=== PATIENT | male | born 1955 | race Caucasian/White ===

== ENCOUNTER → 2020-04-07 17:07 | Outpatient (CLI) | payer BC, SELFPAY ==
[2020-04-07 17:41] LABS: Add Manual Diff / Slide Review NO; Basophils Absolute Auto 100 /uL (0-100); Basophils Percent Auto 1.1 % (0-2); Eosinophils Absolute Auto 500 /uL (0-450); Eosinophils Percent Auto 4.7 % (2-4); Hematocrit 42.8 % (41-53); Hemoglobin 14.5 g/dL (13.5-17.5); Lymphocytes Absolute Auto 2400 /uL (1100-4500); Lymphocytes Percent Auto 23.7 % (25-40); Mean Corpuscular HGB Conc 33.9 % (30-36); Mean Corpuscular Hemoglobin 29.1 PG (26-34); Mean Corpuscular Volume 85.8 fL (80-100); Monocytes Absolute Auto 700 /uL (0-900); Monocytes Percent Auto 6.9 % (3-14); Neutrophils Absolute Auto 6500 /uL (1500-7000); Neutrophils Percent Auto 63.6 % (50-75); Platelet Count 262 X10^3/uL (150-400); Red Blood Cell Count 4.99 X10^6/uL (4.5-5.9); Red Cell Distribution Width 14.3 % (11.6-14.8); White Blood Cell Count 10.2 X10^3/uL (4.5-11.0)
[2020-04-07 18:01] LABS: BUN Creatinine Ratio 24.7 (6-22); Blood Urea Nitrogen 22 mg/dL (9-20); Calcium 9.8 mg/dL (8.4-10.2); Carbon Dioxide 27 mmol/L (22-32); Chloride 106 mmol/L (98-107); Estimated Glomerular Filt Rate > 60.0 mL/min (>60); Glucose 129 mg/dL (80-110); HEMOLYSIS < 15 (0-50); Potassium 4.1 mmol/L (3.4-5.1); Sodium 139 mmol/L (137-145)
== END ==
PROVIDERS: Referring Provider Orthopaedic Surgery; Visit Provider Orthopaedic Surgery
DX: Z01.818 Encounter for other preprocedural examination (principal); Z01.812 Encounter for preprocedural laboratory examination; M25.561 Pain in right knee
CPT/HCPCS: 36415; 80048; 85025; 93005

== ENCOUNTER → 2020-04-10 09:08 | Outpatient (CLI) | payer BC, SELFPAY ==
[2020-04-10 11:14] LABS: COVID19 -Nasal RAPID Negative (Negative)
== END ==
PROVIDERS: Visit Provider Nurse Practitioner
DX: Z20.822 Contact with and (suspected) exposure to COVID-19 (principal)
CPT/HCPCS: 87635

== ENCOUNTER 2020-04-12 10:47 | Day surgery (SDC) | payer BC, SELFPAY ==
[2020-04-12] VITALS (14 sets, daily range): BP systolic 115–158; BP diastolic 57–83; PULSE 78–89; RESP 11–17; TEMP 36.8–37.7; O2SAT 91–97; BMI 37.2
--- NOTE | 2020-04-12 06:00 | DI.RAD.S_ITS ---
PROCEDURE: XR KNEE RT 1TO2V INDICATIONS: post op films TECHNIQUE: 2 view(s) of the knee acquired. COMPARISON: [facility], , KNEE 1-2 VIEWS LEFT, 04/11/2016, 12:05. FINDINGS: Bones: Patient is status post knee joint arthroplasty. Hardware components are in expected positions. Visualized bony structures are intact. Soft tissues: Overlying postoperative changes are noted. IMPRESSION: Postop changes from right total knee arthroplasty with anatomic right knee alignment. Dictated by: Rios Gillespie M.D. on 04/12/2020 at 16:19 Approved by: Rios Gillespie M.D. on 04/12/2020 at 16:20
[2020-04-12] MEDS: MELOXICAM 7.5 MG TABLET 15 MG PO (11:26)
[2020-04-12] MEDS: PREGABALIN 75 MG CAPSULE PO (11:26)
[2020-04-12] MEDS: ACETAMINOPHEN 325 MG TABLET 975 MG PO (11:27)
[2020-04-12] MEDS: LACTATED RINGERS 1,000 ML 42 ML IV (11:28)
[2020-04-12] MEDS: CEFAZOLIN 2 GM/100 ML FROZ.PIGGY IV (13:53)
[2020-04-12] MEDS: TRANEXAMIC ACID 1,000 MG VIAL 1000 MG INJ ×2 (14:06→15:08)
[2020-04-12] MEDS: MORPHINE 4 MG/ML INJ INJ (14:18)
[2020-04-12] MEDS: BUPIVACAINE LIPOSOME 266 MG/20 ML VIAL INJ (14:18)
[2020-04-12] MEDS: BUPIVACAINE 0.5% W/ EPI (PF) 30 ML VIAL INJ (14:20)
--- NOTE | 2020-04-12 15:32 | SUR.OPER ---
Supine on padded OR bed. Pillow under head, arms secured on padded armboards <90 degree abduction. Safety belt across torso. Non-operative leg secured with tape over blanket over lower leg. Operative leg secured in DeMayo positioner and Operative leg in control of the surgeon.
--- NOTE | 2020-04-12 15:33 | PM.OP.1 ---
Operative Date/Time/Diagnoses Date of procedure: 04/12/20 Time of procedure: 15:34 Pre-op diagnosis: Right knee osteoarthritis Post-op diagnosis: same Procedure & Clinicians Procedure: Right total knee replacement Same procedure as scheduled: Yes Indications: The patient has had progressively worsening right knee pain with radiographic changes consistent with arthritis. Non-operative management has failed and the patient has requested total knee replacement. The risks, benefits and alternatives to surgery were discussed with the patient prior to proceeding. Risks discussed included, but were not limited to, failure to relieve pain, stiffness, infection, nerve damage, deep venous thrombosis, pulmonary embolism, stroke, coma, heart attack, permanent paralysis and , as well as the potential need for eventual revision of the prosthetic. Surgeon: Stephen Arvizu Program Services Assistant: Len Mercedes Click Yes if Unassisted: No Anesthesia Type: Spinal, Sedation and Local Operative Notes Findings: Severe patellofemoral and medial osteoarthritis with relative preservation of the lateral compartment. Closure Type: primary Specimen(s): none sent Prosthetic devices, grafts, tissues, transplants, or devices: Implants used in this procedure were manufactured by the [employer] and [employer] and included the BCS II Journey total knee replacement with a size 7 right Oxinium femur, size 6 right non porous tibial base plate, a 9 mm cross-linked polyethylene tibial insert and a 35 mm oval Sofia II patellar component. Applied: implant(s) Estimated Blood Loss (mL): 25 Blood products transfused: none Tourniquet time (min): 60 Procedure in detail: The patient was seen in the pre-operative area, where the patient identified the right knee as the operative site and this was marked with my initials. The patient received pre-operative antibiotics, and was taken to the operating room and placed on the operative table in the supine position. After satisfactory anesthesia, a radio time sales supervisor out was performed. The right leg was encircled with a tourniquet about the proximal thigh, and the leg was prepared from the toes to the tourniquet with ChloroPrep in the usual fashion and draped through sterile drapes. The leg was elevated and exsanguinated with Eschmark bandage and the tourniquet inflated to 250 mmHg pressure. The knee was approached through an approximately 18 cm incision centered over the patella and carried into the knee through a medial parapatellar arthrotomy. The anterior osteophytes and soft tissues were removed. The rotational landmarks of [place]Hyder's line and the transepicondylar axis were marked on the femur with electrocautery, and intramedullary guide holes for the femur and tibia were created. The distal femoral cut was made in 6 degrees of valgus using the intramedullary guide at the primary cut setting. The proximal tibial cut was then made using the intramedullary guide, taking 9 mm of bone off the less involved side. The extension gap was checked and the rotation of the femoral component confirmed with the gap balancing system. The anterior, posterior and chamfer cuts were then made. The posterior osteophytes and soft tissues were then removed. The posterior capsule was injected with part of a mixture of 60 ml 0.25% Marcaine mixed with 20 ml Exparel and 4 mg of morphine for post-operative pain control. The remainder of this mixture was injected into the capsule and subcutaneous tissues during cement curing. The tibia was prepared with the rotation set by an extra medullary guide. Trial tibial and femoral components were then placed and the intercondylar notch cut through the femoral trial. Range of motion was 0-135 degrees, with good stability throughout the range. The patella was then cut to accommodate the patellar prosthetic. There was no need for a lateral release. The trials were then removed, and the femoral hole plugged with a bone plug. The bone was prepared with pulsatile lavage, and dried with a sponge. Cement was applied and the final prosthetics placed. Excess cement was removed during and after cement curing. After confirming there was no extruded cement posteriorly, the final tibial insert was placed. The knee was copiously irrigated and the tourniquet deflated. Hemostasis was obtained. The capsule was closed with interrupted # 2 polyester suture. The subcutaneous layer was closed with 3-0 Vicryl, and the skin with a running 3-0 V-Lock suture and Dermabond. An Aquacel Ag dressing was applied and the patient was taken to recovery having tolerated the procedure well. Complications: none Post-operative Condition: stable Disposition: PACU Plan for aftercare: The patient will be maintained on a standard total knee replacement protocol with weight bearing as tolerated. The patient will receive aspirin and sequential compression devices for DVT prophylaxis. The patient will be discharged home when safe for the home environment.
[2020-04-12] MEDS: LACTATED RINGERS 1,000 ML 100 ML IV (17:36)
[2020-04-12] MEDS: OXYCODONE IR 5 MG TABLET PO (17:59)
[2020-04-12] MEDS: IBUPROFEN 400 MG TABLET PO (20:43)
[2020-04-12] MEDS: ASPIRIN EC 81 MG TABLET PO (20:43)
[2020-04-12] MEDS: DOCUSATE 100 MG CAPSULE PO (20:45)
[2020-04-12] MEDS: ACETAMINOPHEN 325 MG TABLET 650 MG PO (20:45)
--- NOTE | 2020-04-12 22:14 | PC.NURSE ---
Addendum entered by Catie Parada R.N. 04/12/20 23:13: Pt IV dislodged while trying to urinate. New site placed LFA Pt has not voided, bladder scan 472 I/O cath done by student & instructor for 500cc clear, yellow urine. Continue w/plan of care. Original Note: Pt satisfactory post op course. Med as per orders for discomfort w/good relief. Dsg to right surgical knee CDI. SCD on IVF infusing as per orders. Call light w/in reach, bed alarm on for pt safety. Continue w/plan of care.
[2020-04-13] MEDS: IBUPROFEN 400 MG TABLET PO ×4 (00:13→12:48)
[2020-04-13 00:34] VITALS: BP 119/69; PULSE 88; RESP 20; TEMP 37; O2SAT 95
[2020-04-13] MEDS: OXYCODONE IR 5 MG TABLET PO (04:35)
[2020-04-13 05:08] VITALS: BP 126/61; PULSE 76; RESP 20; TEMP 36.7; O2SAT 94
--- NOTE | 2020-04-13 07:32 | PM.DS.1 ---
History of Present Illness History of Present Illness Date Patient Seen: 04/13/20 Time Patient Seen: 07:32 Chief complaint: *OPB* Narrative: The history and physical are contained in the chart previously completed note. Please refer to that note for this information. Discharge Providers Provider Discharge Date: 04/13/20 Primary care physician: Doctor Candi MD Consults: 04/12/20 16:34 Consult to Discharge Planning Routine Comment: Consult to Physical Therapy Evaluate & Treat Comment: Physician Instructions: postop TKA protocol Discharge provider: Stephen Arvizu MD Summary Hospital Course Discharge Diagnosis: 1. Right knee osteoarthritis 2. Postoperative urinary retention Hospital Course: Patient was admitted to the hospital and taken directly to the operating room on April 12, 2020. He underwent a right total knee replacement with no complications. Postoperative day 1 he was comfortable and had been able to get up several times during the night. He did have urinary retention. At the time of this dictation he has been started on Flomax. The plan is for discharge after spontaneous voiding. Status at Discharge Functional status at discharge: uses cane/walker Overall status at discharge: patient is progressing back to baseline Time Spent with Patient Time spent: Less than 30 minutes Exam Vital Signs (past 8 hours): - 04/13/20 00:34 04/13/20 05:08 Temperature 98.6 F 98.0 F Pulse Rate 88 76 Respiratory Rate 20 20 Blood Pressure 119/69 126/61 Pulse Oximetry 95 94 Oxygen Delivery Method Room Air Oxygen Flow Rate 2 Narrative Exam Narrative: Right knee wound is dressed with no drainage on the bandage. Calf is soft. Light touch and motion are intact in the right lower extremity. [facility] Social History household members: none Smoking Status: Former smoker alcohol intake: current Discharge Assessment & Plan Assessment and Plan Assessment: Stable postoperative day 1 status post right total knee replacement with the exception of urinary retention. This is being addressed this morning. Plan of Treatment: He will be started on Flomax this morning and then discharged after he spontaneously voids. Follow-up will be in my office in 10-14 days. Discharge medications have been called in to [facility]. He will be on oxycodone for pain relief and low-dose aspirin for DVT prophylaxis. He will have outpatient physical therapy. Discharge Plan Discharge Plan Patient Disposition: Home Discharge orders & Medications Discharge Orders: Discharge (Order); Ordered 04/13/20 Ordered By: Stephen Arvizu Prescriptions: New acetaminophen 325 mg Tablet 650 mg PO TID 30 Days Qty: 180 RF: 0 aspirin 81 mg Tablet,Delayed Release (Dr/Ec) 81 mg PO BID 42 Days Qty: 84 RF: 0 tamsulosin [Flomax] 0.4 mg Capsule 0.4 mg PO DAILY Qty: 30 RF: 0 oxycodone 5 mg Tablet 5 mg PO Q4H PRN (Reason: Pain, Moderate (4-6)) Qty: 40 RF: 0 Continued rosuvastatin 10 MG tablet 5 mg PO QDAY Qty: 0 RF: 0 lisinopril-hydrochlorothiazide 20 MG/25 MG tablet 1 tab PO QDAY Qty: 0 RF: 0 diclofenac potassium RF: 0 trhmienmheqw-qmyndlsx-zmlwro Tablet 1 tab PO DAILY RF: 0 krill oil PO DAILY RF: 0 Follow up/Referrals: Doctor Christopher MD [Primary Care Provider] - Stephen Arvizu MD [Physician] - 2 Weeks Diet/Activity/Treatments Diet: Diet as Tolerated and Regular Activity: Bear weight as tolerated on your right knee. Cold/Heat Therapy: Apply ice to the right knee for 15 minutes every hour as needed for pain control. Skin/Wound/Dressing Care Report to your healthcare provider any signs of infection, such as:: chills, fever, night sweats, increased pain, unusual drainage and unusual redness Dressing: You may remove the Danis wrap in 3 days and shower normally with the deeper dressing in place. Leave the deeper dressing in place until follow-up. If the central strip of the deeper dressing becomes saturated with either water or blood, please call the office to have it changed. Visit Report/Discharge Packet Instructions: DI for Knee Replacement Stand Alone Forms: Surgery Discharge Discharge Data Primary Care Provider: Doctor Candi Attending Provider: Stephen Arvizu Quality VTE Deep Vein Thrombosis/Pulmonary Embolism Present on Admission: No
[2020-04-13 07:40] VITALS: BP 131/70; PULSE 77; RESP 18; TEMP 37.1; O2SAT 95
[2020-04-13] MEDS: hydroCHLOROthiazide 25 MG TABLET PO (08:17)
[2020-04-13] MEDS: OXYCODONE IR 10 MG TABLET PO ×2 (08:17→12:48)
[2020-04-13] MEDS: DOCUSATE 100 MG CAPSULE PO (08:17)
[2020-04-13] MEDS: ACETAMINOPHEN 325 MG TABLET 650 MG PO ×2 (08:17→12:47)
[2020-04-13] MEDS: ROSUVASTATIN 10 MG TABLET 5 MG PO (08:18)
[2020-04-13] MEDS: ASPIRIN EC 81 MG TABLET PO (08:18)
[2020-04-13] MEDS: TAMSULOSIN 0.4 MG CAPSULE PO (08:18)
[2020-04-13] MEDS: lisinopriL 20 MG TABLET PO (08:18)
[2020-04-13 08:41] LABS: Hematocrit 36.8 % (41-53); Hemoglobin 12.4 g/dL (13.5-17.5)
--- NOTE | 2020-04-13 10:12 | PT.IIE ---
Current Diagnoses Unilateral primary osteoarthritis, right knee (04/12/20) Surgery Performed Operation Date: 04/12/20 12:45 Actual Procedures p Total Knee Arthroplasty(Right) - Stephen Arvizu MD Physical Therapy Inpatient Evaluation/Re-Eval M1 PT/OT-IP Prior Functional Status Start: 04/13/20 08:39 Freq: NEEDED Status: Active Protocol: Document 04/13/20 10:11 AW (Rec: 04/13/20 11:27 AW [id number]) Medical Review Prior Functional Status Medical History Reviewed Yes Communication WNL Mobility and Gait Pt is active and independent. 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 Activities of Daily Living and IADL's Independent Social History Household Members none Living Arrangements House Number of Floors (Floors) One Floor Number of Stairs To Enter/Railing? Home details refer to daughter 's house where pt will be staying 6 weeks after surgery. 3 RACHEL with left rail ascending. Home Environment Standard Height Toilet,Walk in Shower Home Equipment Front Wheel Walker,Straight Cane,Raised Toilet Seat w/ Armrests,Shower Seat without Backrest,Hand Held Shower,Grab Bars In Shower Additional Social History Comment Pt lives alone in [place]. He is staying locally with his daughter, Sandhya, and her family. He will have assist at nearly all times. M2 PT-IP Current Condition Start: 04/13/20 08:39 Freq: NEEDED Status: Active Protocol: Document 04/13/20 10:11 AW (Rec: 04/13/20 11:27 AW [id number]) Physical Therapy Current Condition Current Condition Evaluation Date 04/13/20 Treatment Diagnosis s/p R TKA; difficulty in walking Onset Date 04/12/20 Weight Bearing Status Weight Bearing Status Weight Bear as Tolerated M3 PT-IP Subjective Start: 04/13/20 08:39 Freq: NEEDED Status: Active Protocol: Document 04/13/20 10:11 AW (Rec: 04/13/20 11:27 AW [id number]) Subjective Physical Therapy Visit Type Type Initial Evaluation Visit Start Time 09:39 Visit Stop Time 10:11 Total Visit Minutes 32 Notes Pt's daughter was present throughout. Number of CLUB ROOM ATTENDANT Visits 0 Physical Therapy Visit Comments Patient Comments Pt is willing to participate with PT Patient Goals Pt plans to discharge to his daughter's house for six weeks Therapy Pain Assessment Pain When Pain Assessed At Rest Pain Present Pain Present Pain Reported Location right knee Intensity 4 Scale Used increases with mobility Pain Management Techniques Apply Cold,Timing of Activity with Medications M4 PT-IP Mobility and Gait Start: 04/13/20 08:39 Freq: NEEDED Status: Active Protocol: Document 04/13/20 10:11 AW (Rec: 04/13/20 11:27 AW [id number]) PT-Bed Mobility Assessment Supine to Sit Supine to Sit Contact Guard Assistance, Minimal Assistance Sit to Supine Sit to Supine Contact Guard Assistance, Bedrails Scooting Scooting to Edge of Bed Contact Guard Assistance PT-Transfer Assessment Sit to and From Stand Sit to and from Stand Minimal Assistance,1 Person Assistance,Use of Upper Extremities Equipment Transfer Assistive Device Gait Belt,Front Wheeled Walker Orthotic/Prosthetic Devices or Brace: No Transfers Transfer Destination Chair Transfer Technique Stand Step Pivot Transfer Ability Level of Assist Minimal Assistance,1 Person Assistance,Use of Upper Extremities Comments Mobility Comments Pt was reclined in bed as PT arrived. He demonstrated supine to sit attempting to use momentum to lift his right leg to left side of the bed and ultimately required min assist. PT demonstrated use of a strap to mobilize the operative leg and pt was able to return to supine CGA to guide the leg. He then repeated supine to sit using the strap and required only CGA. Sitting EOB, pt was able to support himself. He then stood min A x 1 and used the FWW to shift weight side to side. With FWW and CGA, pt ambulated 15 feet in the room and then transferred to the bedside chair min A x 1 with cues for sequencing. Pt was positioned on the chair with ice packs applied to right knee, call light and all needs in reach. Pt's daughter remained in the room. Gait Assessment Gait Gait Assistance Required: Contact Guard Assist Distance (Feet) 15 Able to Maintain Weight Bearing Status Yes During Gait Assistive Devices Assistive Device Gait Belt,Front Wheeled Walker Orthotic/Prosthetic Devices or Brace: No Gait Deviations General Gait Pattern Antalgic,Decreased Stride Length,Decreased Feet Clearance,Flexed Trunk,Step-to Gait Factors Limiting Gait Function Factors Limiting Gait Function Decreased Activity Tolerance, Decreased Strength,Limited Range of Motion,Pain,Poor Balance,Poor Safety Awareness Comments Gait Comments Steps were quite short with feet not passing one another in gait. Pt relied heavily on FWW for weightbearing UE. Stair Climbing Assessment Comments Stair Climbing Comments Not assessed. Pt agrees to train stairs at PM session. PT-Balance Assessment Sitting Balance and Reactions Static Sitting Balance Ability Good Dynamic Sitting Balance Ability Good Standing Balance and Reactions Static Standing Balance Ability Good Dynamic Standing Balance Ability Fair Device Used FWW M5 PT-IP Objective Assessments Start: 04/13/20 08:39 Freq: NEEDED Status: Active Protocol: Document 04/13/20 10:11 AW (Rec: 04/13/20 11:27 AW [id number]) Orientation Orientation/Cognition Level of Alertness Alert Orientation Name,Day of Week,Place, Situation Language Function Ability No Deficits Noted Safety Awareness Understands Safety Issues Memory Description No Deficits Noted Gross Range of Motion Lower Extremity ROM Assessment Right Impaired Impairments Pt able to perform seated knee flex/ext slides with ~85 degrees flexion Strength Lower Extremity Strength Assessment Right Impaired Comments Strength Comments L hip 4/5; L knee 4+/5 Sensation Assessment Sensation Gross Sensation WNL Muscle Tone Muscle Tone WNL Yes M6 PT-IP Treatment Start: 04/13/20 08:39 Freq: NEEDED Status: Active Protocol: Document 04/13/20 10:11 AW (Rec: 04/13/20 11:27 AW [id number]) Physical Therapy Treatment Exercises Exercises Ankle Pumps,Quad Sets,Heel Slides,Passive Knee Extension Hang,Seated Knee Flexion/ Extension Education Education Provided Precautions,Weight Bearing Status,Post-Op Packet,Safety Other Treatments Other Treatment Performed Educated pt and his daughter on role of PT, plan of care, WB status, safe use of FWW. M7 PT-IP Assessment and Plan Start: 04/13/20 08:39 Freq: NEEDED Status: Active Protocol: Document 04/13/20 10:11 AW (Rec: 04/13/20 11:27 AW [id number]) PT Summary Assessment and Plan Potential Rehabilitation Potential Good Status of Condition at Evaluation Evolving Summary Impairments Pain,ROM,Strength,Balance,Bed Mobility,Transfers,Gait, Activity Tolerance Assessment Summary Garrett is a 64 yo man seen for PT evaluation on POD1 following R TKA. He is independent and active on the job at baseline. On evaluation , pt required CGA to min assist for all mobility and was limited by poor activity tolerance. PT anticipates he will be safe to discharge to his daughter's home with assist and outpatient PT once medically stable. He plans to stay with his daughter locally for six weeks to recover and already has outpatient PT scheduled. Pt and daughter agree to participate in caregiver/stairs training at PM session around 1400 today. Will assess for discharge preparedness at that time. Goals Bed Mobility Goal Independent Transfer Goal Standby Assistance,Front Wheeled Walker Gait Goal Standby Assistance,Front Wheel Walker Gait Distance 150 Other Goals - up/down 3 steps with left rail ascending CGA Days to Meet Goals 2 Frequency of Treatment Frequency Of Treatment Twice a Day Treatment Plan Physical Therapy Treatment Plan Bed Mobility Training,Transfer Training,Gait Training, Therapeutic Exercise,Balance Retraining,Post Op Education, Discharge Planning,Hot or Cold Pack Other Recommendations and Next Treatment gait train with FWW; stairs Focus with daughter to assist Recommendations To Nursing Amount of Assist Needed 1 Person Assist Discharge Recommendations PT Discharge Recommendations Home with Assistance, Outpatient PT Transportation Needs at Discharge Private Vehicle
[2020-04-13 10:57] VITALS: BP 131/66; PULSE 76; RESP 16; TEMP 37.7; O2SAT 94
--- NOTE | 2020-04-13 14:50 | PT.IPTN ---
Current Diagnoses Unilateral primary osteoarthritis, right knee (04/12/20) Surgery Performed Operation Date: 04/12/20 12:45 Actual Procedures p Total Knee Arthroplasty(Right) - Stephen Arvizu MD Physical Therapy Treatment Note M2 PT-IP Current Condition Start: 04/13/20 08:39 Freq: NEEDED Status: Active Protocol: Document 04/13/20 10:11 AW (Rec: 04/13/20 11:27 AW [id number]) Physical Therapy Current Condition Current Condition Evaluation Date 04/13/20 Treatment Diagnosis s/p R TKA; difficulty in walking Onset Date 04/12/20 Weight Bearing Status Weight Bearing Status Weight Bear as Tolerated M3 PT-IP Subjective Start: 04/13/20 08:39 Freq: NEEDED Status: Active Protocol: Document 04/13/20 14:24 SP (Rec: 04/13/20 17:06 SP [id number]) Subjective Physical Therapy Visit Type Type Treatment Note Visit Start Time 14:24 Visit Stop Time 14:50 Total Visit Minutes 26 Notes Daughter present and provide all physical assist needed during mobilitiy. Number of AUTOMATIC PATTERN EDGER Visits 1 Physical Therapy Visit Comments Patient Comments PT willing to work with therapy. Patient Goals Pt plans to discharge to his daughter's house for six weeks Therapy Pain Assessment Pain When Pain Assessed At Rest Pain Present Pain Present Pain Reported Location right knee Intensity 6 Scale Used deccreases with mobility Pain Management Techniques Apply Cold,Re-positioning, Timing of Activity with Medications M4 PT-IP Mobility and Gait Start: 04/13/20 08:39 Freq: NEEDED Status: Active Protocol: Document 04/13/20 14:24 SP (Rec: 04/13/20 17:06 SP [id number]) PT-Bed Mobility Assessment Supine to Sit Supine to Sit Standby Assistance,1 Person Assistance,Head of Bed Elevated Scooting Scooting to Edge of Bed Standby Assistance PT-Transfer Assessment Sit to and From Stand Sit to and from Stand Contact Guard Assistance,1 Person Assistance,Use of Upper Extremities Equipment Transfer Assistive Device Gait Belt,Front Wheeled Walker Orthotic/Prosthetic Devices or Brace: No Transfers Transfer Destination Chair Transfer Technique Pt ambulated using fWW Transfer Ability Level of Assist Contact Guard Assistance,Use of Upper Extremities Comments Mobility Comments Pt was performing heel slides when arrived stating, the top of knee is so stiff and not able to bend as much as like, approx 70 deg demonstrated. AUTOMATIC PATTERN EDGER educated not wanting to progress >90 deg right now due to safety stitches, mobility good for circulation as well but not over do it and cause knee to swell. Elevated supine >sit and scoot to EOB using gait belt on RLE, SBA. Sit> stand CGA by daughter after donned gait belt. Pt ambulated further distance into hallway , cued for safety pivot with small step using FWW and not lift turn to allow proper knee alignment with improved demonstration. Ambulated to stairs and back no stop rests needed using FWW CGA. Pt returned to chair with good slow descent CGA. Reviewed seated post op ex: heel slides , LAQ if tolerated and walking at home every hour for circulation, strength and decreased risk for DVT, verbalized understanding. Gait Assessment Gait Gait Assistance Required: Contact Guard Assist Distance (Feet) 180 Able to Maintain Weight Bearing Status Yes During Gait Assistive Devices Assistive Device Gait Belt,Front Wheeled Walker Orthotic/Prosthetic Devices or Brace: No Gait Deviations General Gait Pattern Antalgic,Decreased Stride Length,Decreased Feet Clearance,Flexed Trunk,Step-to Gait Factors Limiting Gait Function Factors Limiting Gait Function Decreased Activity Tolerance, Decreased Strength,Limited Range of Motion,Pain,Poor Balance,Poor Safety Awareness Comments Gait Comments cued slow pivot turning, and proper gait phases, R knee flexion into extension foot clearance into extension heel toe. Stair Climbing Assessment Evaluation Level of Assist On Stairs Contact Guard Assistance,1 Person Assistance Devices Stair Climbing Assistive Devices Straight Cane,Left Railing Technique/Endurance Stair Climbing Direction Ascend and Descend Stair Climbing Technique Step to Step Number of Steps Climbed 3 Stair Climbing Set # Repetitions (reps) 1 Comments Stair Climbing Comments Step to patterning, occasional cuing for proper sequencing. PT-Balance Assessment Sitting Balance and Reactions Static Sitting Balance Ability Good Dynamic Sitting Balance Ability Good Standing Balance and Reactions Static Standing Balance Ability Good Dynamic Standing Balance Ability Fair Device Used FWW M5 PT-IP Objective Assessments Start: 04/13/20 08:39 Freq: NEEDED Status: Active Protocol: Document 04/13/20 10:11 AW (Rec: 04/13/20 11:27 AW [id number]) Orientation Orientation/Cognition Level of Alertness Alert Orientation Name,Day of Week,Place, Situation Language Function Ability No Deficits Noted Safety Awareness Understands Safety Issues Memory Description No Deficits Noted Gross Range of Motion Lower Extremity ROM Assessment Right Impaired Impairments Pt able to perform seated knee flex/ext slides with ~85 degrees flexion Strength Lower Extremity Strength Assessment Right Impaired Comments Strength Comments L hip 4/5; L knee 4+/5 Sensation Assessment Sensation Gross Sensation WNL Muscle Tone Muscle Tone WNL Yes M6 PT-IP Treatment Start: 04/13/20 08:39 Freq: NEEDED Status: Active Protocol: Document 04/13/20 14:24 SP (Rec: 04/13/20 17:06 SP [id number]) Physical Therapy Treatment Exercises Exercises Ankle Pumps,Heel Slides,Seated Knee Flexion/Extension Knee ROM Measurement 70 deg w/ strap assist self performance Education Education Provided Precautions,Weight Bearing Status,Post-Op Packet,Safety Other Treatments Other Treatment Performed safe use of FWW M7 PT-IP Assessment and Plan Start: 04/13/20 08:39 Freq: NEEDED Status: Active Protocol: Document 04/13/20 14:24 SP (Rec: 04/13/20 17:06 SP [id number]) PT Summary Assessment and Plan Potential Rehabilitation Potential Good Status of Condition at Evaluation Evolving Summary Impairments Pain,ROM,Strength,Balance,Bed Mobility,Transfers,Gait, Activity Tolerance Assessment Summary Pt required sBA during bed mobililty using gait belt RLE, CGAfor all standing mobility using FWW. Pt completed 180 ft using FWW, ascend/descend 3 stairs using L HR and R SPC to enter daughter's home. Pt is ok to return home with family to assist when medically cleared. He is set up for outpatient PT. Goals Bed Mobility Goal Independent Transfer Goal Standby Assistance,Front Wheeled Walker Gait Goal Standby Assistance,Front Wheel Walker Gait Distance 150 Other Goals - up/down 3 steps with left rail ascending CGA Days to Meet Goals 2 Frequency of Treatment Frequency Of Treatment Twice a Day Treatment Plan Physical Therapy Treatment Plan Bed Mobility Training,Transfer Training,Gait Training, Therapeutic Exercise,Balance Retraining,Post Op Education, Discharge Planning,Hot or Cold Pack Other Recommendations and Next Treatment distance gait, LE ex, stand Focus balance activities, ROM Recommendations To Nursing Amount of Assist Needed 1 Person Assist Discharge Recommendations PT Discharge Recommendations Home with Assistance, Outpatient PT Transportation Needs at Discharge Private Vehicle
[2020-04-13 15:30] VITALS: BP 125/59; PULSE 71; RESP 17; TEMP 36.7; O2SAT 93
--- NOTE | 2020-04-13 16:33 | CM.DANOTE ---
DCP ASSESSMENT: Patient is 64 year-old male who was admitted post-surgical intervention for a right knee total knee replacement. PCP is a group of providers in [place] at [facility]. Primary payer is [facility] out of [facility]. DIABETES MANAGER Student met with patient sitting in chair in his room, patient was alert and oriented. He reported he is independent at base-line: working and driving. Per patient he pre-planned to have knee surgery here in [place] with Dr. Arvizu. Patient reported he is prepared at home he has mobility devices FWW/Cane and AE/DME for bathroom. Patient plans on remaining in area with his daughter Lucia Benitez for the next 6-weeks during recovery she can provide assistance at home and transportation upon D/C. Per patient has an out-patient PT appointment scheduled on 04/19/20. PLAN: Anticipate D/C home. CM Team to follow. MICHELLE Morales MSW Student Discharge Planning/Care Management CM Discharge Assessment Start: 04/13/20 11:53 Freq: Status: Active Protocol: Document 04/13/20 11:53 AL (Rec: 04/13/20 12:12 AL [id number]) Discharge Planning Assessment Assigned Application Development Team Lead MICHELLE Trujillo Student Contact Information Lucia Benitez, Daughter # Advance Directives? No History Provided By Patient,Medical Record Has Patient been admitted in last 30 No days? Prior Living Arrangements House Household Members children,none Comment Patient lives in [place] independently however, he is in [place] for pre-planned surgical intervention and will be staying with his daughter for the entire recovery period . Type of transporation used prior to Drives own vehicle admit Independent with ADL's Yes Is patient alert and oriented? Yes Caregiver for Another No DME Already Rented / Owned Bath Bench,Elevated Toilet Seat,FWW / Walker,Cane Discharge Plan Home Transportation Arrangement Patients daughter Lucia Benitez Referrals Initiated None needed Whiteboard Updated in Patient Room with Yes name and ext. # of Application Development Team Lead Review Status In Process Pre-Anesthesia Assessment Start: 03/30/20 15:52 Freq: Status: Active Protocol: Document 03/30/20 15:52 VLJ (Rec: 03/30/20 17:09 [facility] [id number]) Pre-Anesthesia Assessment Preferred Name Rolando (or Garrett) Patient Information Reviewed Via Phone Assessment Assessment Completed With Patient Primary Care Provider Thanh Seen Specialist in Last 12 Months Yes Specialist Seen Orthopedist Primary Language Tongan Preferred Language Tongan Chute Tapper Required Yes Height 172.72 cm Hearing Ability Normal Visual Impairment Partially Limited Visual Assist Glasses Dentition Type Teeth, Natural Present Barriers to Learning Visual Other Aids No Comment reading glasses Hx Anesthesia Reactions No Hx Family Anesthesia Reaction No Hx Malignant Hyperthermia No Hx Blood Transfusions No Hx Blood Transfusion Reaction No Anesthesia Review Requested No Salesperson Women'S Hats No alcohol intake current alcohol intake frequency a few times a month Smoking Status Former smoker how long ago did patient quit smoking 1986 Substance Use Type does not use Pain Present Denied Pain Musculoskeletal Symptoms Joint Pain History of Falling (Recent or History of No ) Patient is completely paralyzed or No completely immobile Ambulatory Aid None/bed rest/nurse assist Gait/Transferring Normal/bedrest/immobile Mental Status Oriented to own ability Is patient on oxygen? No Does patient have MAY/SOB No Hx Sleep Apnea Yes CPAP/BIPAP use prescribed and used routinely Will Bring CPAP/BIPAP DOS Yes Currently Taking a Beta David No Can You Climb a Flight of Stairs Without Yes SOB Hx Chest Pain No Hx SOB No Hx Syncope or Dizziness No Anti-Coagulant Therapy No Has a Library Services Dean No Cardiac Testing No Hx Pacemaker/ICD No Pacemaker Rep Required? No Cardiac Clearance Received Not Applicable Diet Type At Home Regular dysphagia No Bladder Pattern Frequency,Urgency Urinary Catheter Present No Hx Urinary Self Catheterization No Diabetes No HgbA1C 6.3 Comment per patient Hx Drug Resistant Organism No Presence of External or Internal Medical No Devices Have you had any close contact with No: (had covid in September) someone diagnosed with COVID-19? Are you experiencing any of these No symptoms symptoms? Evaluation/Screening for possible COVID- Yes 19 infection completed? Marital Status Lives With none Prior Living Arrangements House Number of Floors (Floors) Two Floors Number of Stairs To Enter/Railing? Pt is staying on the main floor at his daughter's house. Support System Family Does the Patient Have Assistance After Yes Surgery Patient Discharge Plan Description Home Health Comment Plans to stay here 7 weeks or until ready to return to work Additional comment Live in [place] Feels Safe in Current Environment Yes Been Physically Hurt or Threatened By a No Person in Current Environment Do you have thoughts of harming yourself None or others? Are you currently considering suicide? No Do you have a plan to hurt yourself or No Plan others? Do You Have Any Spiritual Beliefs That No May Affect Your HC Choices? Do You Have Any Cultural Practices That No May Affect Your HC Choices? Who Can We Speak to About Patient's Care Family & Friends Identifying Code for Release of Patient Declined Information Health Care Proxy/Next of Kin Daughter - Sandhya Benitez Health Care Proxy Emergency Contact Name Daughter - Sandhya Benitez Emergency Contact Comment She works at [employer] Directives? No Power of Bit Grinder No PAC Instructions Assistance for 24 hours post- op,Do not shave/clip surgical site,Durable medical equipment ,Medications to take/avoid, Nasal antibiotic,No ETOH/ petroleum product on skin DOS, NPO,Post-op transportation,Pre -op antibiotic,Pre-surgical wash,Sensory aids,Sturdy shoes /comfortable clothes,Do not bring valuables and remove jewelry
--- NOTE | 2020-04-13 17:18 | PC.NURSE ---
VSS. Discharge packet reviewed with patient. Questions answered. Escorted off of unit via wheelchair to personal vehicle. Off of unit 4:45.
== END 2020-04-13 16:50 | disposition home or self-care (01) ==
LOC: OR 11:48 → AC 13:44
PROVIDERS: Referring Provider Orthopaedic Surgery; Visit Provider Orthopaedic Surgery
PROC: 0SRC0JZ Replacement of Right Knee Joint with Synthetic Substitute, Open Approach (ICD-10-PCS; CPT 27447; principal; 2020-04-12 12:45)
DX: M17.11 Unilateral primary osteoarthritis, right knee (principal); I10 Essential (primary) hypertension; G47.33 Obstructive sleep apnea (adult) (pediatric); E66.9 Obesity, unspecified; Z68.37 Body mass index [BMI] 37.0-37.9, adult; R33.8 Other retention of urine
CPT/HCPCS: 27447; 36415; 73560; 82962; 85014; 85018; 94760; 97110; 97116; 97161; 97530; C1776; C9290; J0690; J1100; J2270; J2274; J2405; J2704

== ENCOUNTER 2020-05-19 10:30 | Outpatient (RCR) | payer BC, SELFPAY ==
--- NOTE | 2020-04-12 12:57 | PM.PREOP ---
Pre-operative Note COVID-19 COVID-19 status: Negative Result date/Date tested (Pos, Neg/Pending): 04/10/20 Interval Note History & Physical reviewed/Exam performed by Physician: Yes Changes to H&P: No
[2020-04-12 17:04] VITALS: BMI 37.2
--- NOTE | 2020-04-19 10:12 | PT.OIE ---
Current Diagnoses Bilateral primary osteoarthritis of knee (04/19/20) Difficulty in walking, not elsewhere classified (04/19/20) Weakness (04/19/20) Presence of left artificial knee joint (04/19/20) Visit Care Team Role Provider Type Doctor MD Candi Primary Care Provider Non-Staff Specialty: Medical Address: Phone: Fax: Email: Stephen Arvizu MD Attending Provider Physician Referring Provider Specialty: Orthopedic Surgery Address: [address] [place] [address], [place], [address] Email: [email or web address] Physical Therapy Initial Evaluation PT-OP-A Visit Information Start: 04/19/20 08:13 Freq: Status: Active Protocol: Document 04/19/20 08:14 SAK (Rec: 04/19/20 09:01 SAK [id number]) Out-Patient Physical Therapy Visit Information Visit Information Visit Type Initial Evaluation Visit Note Patient 5 min late Visit Start Time 08:20 Visit Number 1 Number of AUTOMOTIVE PARTS MANAGER Visits 0 Evaluation Information Evaluation Date 04/19/20 PT-OP-B Current Condition Start: 04/19/20 08:13 Freq: Status: Active Protocol: Document 04/19/20 08:14 SAK (Rec: 04/19/20 09:01 SAK [id number]) Current Condition History of Current Condition Onset Date 09/12/20 Current Complaints right knee pain History of Current Condition s/p right TKA, has been, doing HEP, has ice massage, has not been elevating. Reports minimal pain with this TKA as compared to high pain levels after last TKA. Has recovered well from left TKA. Future Testing and Treatments Planned Sees Dr. Arvizu 04/23/20 Treatment Goals Patient/Caregiver Goals Normal range of motion, strength, and walking with right LE, no assistive. Prior Functional Status Baseline Function- ADL's Independent Baseline Function- Mobility Independent Baseline Function- Gait antalgic due to pain Current Functional Impairments (Reported) Functional Limitations- ADL's painful Functional Limitations- Mobility/Gait painful, uses FWW Functional Limitations- Work/School painful Functional Limitations- Recreation/ painful Hobbies PT-OP-C Subjective Start: 04/19/20 08:13 Freq: Status: Active Protocol: Document 04/20/20 10:06 SAK (Rec: 04/20/20 10:11 [facility] [id number]) Patient Questionnaires Lower Extremity Functional Scale LEFS Score 39 OP-PT Pain Assessment Pain Assessment Grid Paper Pain Assessment Grid Completed Yes Location right knee Intensity 8 Scale Used Numeric (0 - 10) Description Aching,Burning,Pressure,Spasm, Tender,Tightness Frequency Frequent Pain Aggravating Factors Activity Pain Alleviating Factors Cold,Medication PT-OP-G Mobility & Gait Start: 04/19/20 08:13 Freq: Status: Active Protocol: Document 04/20/20 10:06 HALIMA (Rec: 04/20/20 10:11 [facility] [id number]) OP Gait Assessment Gait Gait Assistance Required: Standby Assistance Distance (Feet) 50 Able to Maintain Weight Bearing Status Yes During Gait Assistive Devices Assistive Device Front Wheeled Walker Orthotic/Prosthetic Devices or Brace: No Gait Deviations General Gait Pattern Antalgic,Flexed Trunk Factors Limiting Gait Function Factors Limiting Gait Function Decreased Strength,Pain Stair Climbing Evaluation Evaluation Level of Assist On Stairs Standby Assistance Technique/Endurance Stair Climbing Technique Step to Step PT-OP-H Neuro Start: 04/19/20 08:13 Freq: Status: Active Protocol: Document 04/20/20 10:06 HALIMA (Rec: 04/20/20 10:11 [facility] [id number]) Sensation Evaluation Gross Sensation Gross Sensation Right LE Impaired Sensation Description Paresthesia Comments Summary Comments right knee PT-OP-J Posture/Palpation/Skin Start: 04/19/20 08:13 Freq: Status: Active Protocol: Document 04/20/20 10:06 HALIMA (Rec: 04/20/20 10:11 [facility] [id number]) Palpation Assessment Location One Palpation Location right knee Palpation Findings Edema,Soft Tissue Tightness, Muscle Guarding,Tenderness Skin Assessment Incisional Assessment Incision Appearance/Comments Incision covered by post-op dressing. No signs or symptoms of infection PT-OP-K Range of Motion Start: 04/19/20 08:13 Freq: Status: Active Protocol: Document 04/20/20 10:06 HALIMA (Rec: 04/20/20 10:11 [facility] [id number]) Knee Goniometric Range of Motion Knee Right Knee ROM WFL No Patient Position Sitting Flexion Active (degrees) 88 Extension Active (degrees) 24 Left Knee ROM WFL Yes Patient Position Sitting Flexion Active (degrees) 124 Extension Active (degrees) 0 Knee ROM Limitations Knee ROM Limitations Soft Tissue Tightness,Muscle Weakness,Pain,Swelling Comments poor quad activation PT-OP-M Strength Start: 04/19/20 08:13 Freq: Status: Active Protocol: Document 04/20/20 10:06 SAK (Rec: 04/20/20 10:11 SAK [id number]) Knee Strength Knee Manual Muscle Testing Right Flexion (S2) 3- Fair- Extension (L3) 3- Fair- Left Flexion (S2) 5 Normal Extension (L3) 5 Normal PT-OP-Q Treatments Start: 04/19/20 08:13 Freq: Status: Active Protocol: Document 04/19/20 08:14 SAK (Rec: 04/19/20 09:01 SAK [id number]) Self-Care/Home Management Treatment Education Patient Education Fall Risk,Home Exercise Program,Pain Management,Safety PT-OP-R Modalities Start: 04/19/20 08:13 Freq: Status: Active Protocol: Document 04/19/20 08:14 SAK (Rec: 04/19/20 09:01 SAK [id number]) Hot Pack/Cold Pack Treatment Cold Pack Location knee Patient Position Hooklying Treatment Duration (minutes) 10 PT-OP-T Assessment and Plan Start: 04/19/20 08:13 Freq: Status: Active Protocol: Document 04/19/20 08:14 SAK (Rec: 04/19/20 09:01 SAK [id number]) Physical Therapy Assessment Goals Four Impairment lower extremity functional scale 39% Halfway Goal (LTG) Decrease LEFS score to no greater than 15% LTG Duration 07/19/20 Three Impairment right knee strength 3-/5 Short Term Goal (STG) Patient to be instructed in HEP for right knee strengthening and be independent and compliant STG Duration 05/26/20 Halfway Goal (LTG) Patient right knee strength to improve to at least 4+/5 LTG Duration 07/19/20 Two Impairment antalgic gait requiring FWW Short Term Goal (STG) Patient able to ambulate 200' with least restrictive device without limp STG Duration 05/26/20 Ledge Man Goal (LTG) Patient able to ambulate on level surfaces and stairs with no assistive device without limp and with alternating pattern on stairs. LTG Duration 07/19/20 One Impairment right knee AROM 24-88 Short Term Goal (STG) Improve AROM right knee to 10- 110 STG Duration 05/26/20 Halfway Goal (LTG) Improve knee AROM to 0-120 actively LTG Duration 07/19/20 Assessment Summary Assessment Patient presents for PT s/p right TKA 04/12/20 with ROM right knee 45-78 degrees AROM, 24-88 PROM. He has difficulty activating his quadriceps at this time. He is ambulating with a FWW with limited knee flexion and antalgic gait which improved some with instruction. He will benefit from physical therapy to address the above goals and help him return to previously active lifestyle. Physical Therapy Plan Frequency and Duration Frequency of Treatment 2x/Week Duration of Treatment 12 weeks Plan of Care Start Date 04/19/20 Plan of Care End Date 07/19/20 Therapeutic Interventions Therapeutic Interventions Balance Training,Gait Training ,Home Exercise Program,Joint Mobilizations,Manual Therapy, Neuromuscular Re-education, Patient/Caregiver Education, Self-Care/Home Management,Soft Tissue Mobilization,Taping, Therapeutic Activities, Therapeutic Exercises Modalities Cold Pack/Ice Massage,Electric Stimulation,Hot Packs Next Visit Focus/Plan Next Note Type Treatment Note Next Visit Plan Start with recumbant elliptical for ROM, review HEP , progress ther ex as tolerated, further gait training.
--- NOTE | 2020-04-19 10:14 | PT.OPPOC ---
Physical, Occupational & Speech Therapy At [facility] Current Diagnoses Bilateral primary osteoarthritis of knee (04/19/20) Difficulty in walking, not elsewhere classified (04/19/20) Weakness (04/19/20) Presence of left artificial knee joint (04/19/20) Visit Care Team Role Provider Type Doctor MD Candi Primary Care Provider Non-Staff Specialty: Medical Address: Phone: Fax: Email: Stephen Arvizu MD Attending Provider Physician Referring Provider Specialty: Orthopedic Surgery Address: [address] [place] [address], [id number] Email: [email or web address] Plan Of Care PT-OP-T Assessment and Plan Start: 04/19/20 08:13 Freq: Status: Active Protocol: Document 04/19/20 08:14 SAK (Rec: 04/19/20 09:01 SAK [id number]) Physical Therapy Assessment Goals Four Impairment lower extremity functional scale 39% Mcfp Goal (LTG) Decrease LEFS score to no greater than 15% LTG Duration 07/19/20 Three Impairment right knee strength 3-/5 Short Term Goal (STG) Patient to be instructed in HEP for right knee strengthening and be independent and compliant STG Duration 05/26/20 Java Jsf Developer Goal (LTG) Patient right knee strength to improve to at least 4+/5 LTG Duration 07/19/20 Two Impairment antalgic gait requiring FWW Short Term Goal (STG) Patient able to ambulate 200' with least restrictive device without limp STG Duration 05/26/20 Java Jsf Developer Goal (LTG) Patient able to ambulate on level surfaces and stairs with no assistive device without limp and with alternating pattern on stairs. LTG Duration 07/19/20 One Impairment right knee AROM 24-88 Short Term Goal (STG) Improve AROM right knee to 10- 110 STG Duration 05/26/20 Mcfp Goal (LTG) Improve knee AROM to 0-120 actively LTG Duration 07/19/20 Assessment Summary Assessment Patient presents for PT s/p right TKA 04/12/20 with ROM right knee 45-78 degrees AROM, 24-88 PROM. He has difficulty activating his quadriceps at this time. He is ambulating with a FWW with limited knee flexion and antalgic gait which improved some with instruction. He will benefit from physical therapy to address the above goals and help him return to previously active lifestyle. Physical Therapy Plan Frequency and Duration Frequency of Treatment 2x/Week Duration of Treatment 12 weeks Plan of Care Start Date 04/19/20 Plan of Care End Date 07/19/20 Therapeutic Interventions Therapeutic Interventions Balance Training,Gait Training ,Home Exercise Program,Joint Mobilizations,Manual Therapy, Neuromuscular Re-education, Patient/Caregiver Education, Self-Care/Home Management,Soft Tissue Mobilization,Taping, Therapeutic Activities, Therapeutic Exercises Modalities Cold Pack/Ice Massage,Electric Stimulation,Hot Packs Next Visit Focus/Plan Next Note Type Treatment Note Next Visit Plan Start with recumbant elliptical for ROM, review HEP , progress ther ex as tolerated, further gait training. Plan of Care Dates Plan of Care Start Date 04/19/20 Plan of Care End Date 07/19/20 Electronically Signed by: Minerva Priest, PT 04/20/20 1014 Please Sign and Return: I have reviewed this Plan of Care and certify that the skilled therapy services above are required to meet the patient?s needs. Physician Signature Date Printed Name and Credentials Clinical Instructor Signature Printed Name and Credentials
--- NOTE | 2020-04-20 10:13 | PT.OPPOC ---
Physical, Occupational & Speech Therapy At [facility] Current Diagnoses Bilateral primary osteoarthritis of knee (04/19/20) Difficulty in walking, not elsewhere classified (04/19/20) Weakness (04/19/20) Presence of left artificial knee joint (04/19/20) Visit Care Team Role Provider Type Doctor MD Candi Primary Care Provider Non-Staff Specialty: Medical Address: Phone: Fax: Email: Stephen Arvizu MD Attending Provider Physician Referring Provider Specialty: Orthopedic Surgery Address: [address] [place] [address], [id number] Email: [email or web address] Plan Of Care PT-OP-T Assessment and Plan Start: 04/19/20 08:13 Freq: Status: Active Protocol: Document 04/19/20 08:14 SAK (Rec: 04/19/20 09:01 SAK [id number]) Physical Therapy Assessment Goals Four Impairment lower extremity functional scale 39% Halfway Goal (LTG) Decrease LEFS score to no greater than 15% LTG Duration 07/19/20 Three Impairment right knee strength 3-/5 Short Term Goal (STG) Patient to be instructed in HEP for right knee strengthening and be independent and compliant STG Duration 05/26/20 Public Relations Professional Goal (LTG) Patient right knee strength to improve to at least 4+/5 LTG Duration 07/19/20 Two Impairment antalgic gait requiring FWW Short Term Goal (STG) Patient able to ambulate 200' with least restrictive device without limp STG Duration 05/26/20 Public Relations Professional Goal (LTG) Patient able to ambulate on level surfaces and stairs with no assistive device without limp and with alternating pattern on stairs. LTG Duration 07/19/20 One Impairment right knee AROM 24-88 Short Term Goal (STG) Improve AROM right knee to 10- 110 STG Duration 05/26/20 Halfway Goal (LTG) Improve knee AROM to 0-120 actively LTG Duration 07/19/20 Assessment Summary Assessment Patient presents for PT s/p right TKA 04/12/20 with ROM right knee 45-78 degrees AROM, 24-88 PROM. He has difficulty activating his quadriceps at this time. He is ambulating with a FWW with limited knee flexion and antalgic gait which improved some with instruction. He will benefit from physical therapy to address the above goals and help him return to previously active lifestyle. Physical Therapy Plan Frequency and Duration Frequency of Treatment 2x/Week Duration of Treatment 12 weeks Plan of Care Start Date 04/19/20 Plan of Care End Date 07/19/20 Therapeutic Interventions Therapeutic Interventions Balance Training,Gait Training ,Home Exercise Program,Joint Mobilizations,Manual Therapy, Neuromuscular Re-education, Patient/Caregiver Education, Self-Care/Home Management,Soft Tissue Mobilization,Taping, Therapeutic Activities, Therapeutic Exercises Modalities Cold Pack/Ice Massage,Electric Stimulation,Hot Packs Next Visit Focus/Plan Next Note Type Treatment Note Next Visit Plan Start with recumbant elliptical for ROM, review HEP , progress ther ex as tolerated, further gait training. Plan of Care Dates Plan of Care Start Date 04/19/20 Plan of Care End Date 07/19/20 Electronically Signed by: Minerva Priest, PT 04/20/20 1013 Please Sign and Return: I have reviewed this Plan of Care and certify that the skilled therapy services above are required to meet the patient?s needs. Physician Signature Date Printed Name and Credentials Clinical Instructor Signature Printed Name and Credentials
--- NOTE | 2020-04-22 10:33 | PT.OTN ---
Current Diagnoses Bilateral primary osteoarthritis of knee (04/22/20) Difficulty in walking, not elsewhere classified (04/22/20) Weakness (04/22/20) Presence of left artificial knee joint (04/22/20) Physical Therapy Treatment Note PT-OP-A Visit Information Start: 04/19/20 08:13 Freq: Status: Active Protocol: Document 04/22/20 10:03 SAK (Rec: 04/22/20 10:32 SAK [id number]) Out-Patient Physical Therapy Visit Information Visit Information Visit Type Treatment Note Visit Start Time 09:45 Visit Stop Time 10:40 Total Visit Minutes 55 Visit Number 2 PT-OP-B Current Condition Start: 04/19/20 08:13 Freq: Status: Active Protocol: Document 04/19/20 08:14 SAK (Rec: 04/19/20 09:01 SAK [id number]) Current Condition History of Current Condition Onset Date 09/12/20 Current Complaints right knee pain History of Current Condition s/p right TKA, has been, doing HEP, has ice massage, has not been elevating. Reports minimal pain with this TKA as compared to high pain levels after last TKA. Has recovered well from left TKA. Future Testing and Treatments Planned Sees Dr. Arvizu 04/23/20 Treatment Goals Patient/Caregiver Goals Normal range of motion, strength, and walking with right LE, no assistive. Prior Functional Status Baseline Function- ADL's Independent Baseline Function- Mobility Independent Baseline Function- Gait antalgic due to pain Current Functional Impairments (Reported) Functional Limitations- ADL's painful Functional Limitations- Mobility/Gait painful, uses FWW Functional Limitations- Work/School painful Functional Limitations- Recreation/ painful Hobbies PT-OP-C Subjective Start: 04/19/20 08:13 Freq: Status: Active Protocol: Document 04/22/20 10:03 SAK (Rec: 04/22/20 10:32 SAK [id number]) OP-PT Subjective Patient Comments Patient Comments Walked around thte block trying not to use his walker, swelled up a lot. PT-OP-G Mobility & Gait Start: 04/19/20 08:13 Freq: Status: Active Protocol: Document 04/19/20 08:14 SAK (Rec: 04/20/20 10:11 SAK [id number]) OP Gait Assessment Gait Gait Assistance Required: Standby Assistance Distance (Feet) 50 Able to Maintain Weight Bearing Status Yes During Gait Assistive Devices Assistive Device Front Wheeled Walker Orthotic/Prosthetic Devices or Brace: No Gait Deviations General Gait Pattern Antalgic,Flexed Trunk Factors Limiting Gait Function Factors Limiting Gait Function Decreased Strength,Pain Stair Climbing Evaluation Evaluation Level of Assist On Stairs Standby Assistance Technique/Endurance Stair Climbing Technique Step to Step PT-OP-H Neuro Start: 04/19/20 08:13 Freq: Status: Active Protocol: Document 04/19/20 08:14 SAK (Rec: 04/20/20 10:11 [facility] [id number]) Sensation Evaluation Gross Sensation Gross Sensation Right LE Impaired Sensation Description Paresthesia Comments Summary Comments right knee PT-OP-J Posture/Palpation/Skin Start: 04/19/20 08:13 Freq: Status: Active Protocol: Document 04/19/20 08:14 SAK (Rec: 04/20/20 10:11 SAK [id number]) Palpation Assessment Location One Palpation Location right knee Palpation Findings Edema,Soft Tissue Tightness, Muscle Guarding,Tenderness Skin Assessment Incisional Assessment Incision Appearance/Comments Incision covered by post-op dressing. No signs or symptoms of infection PT-OP-K Range of Motion Start: 04/19/20 08:13 Freq: Status: Active Protocol: Document 04/19/20 08:14 SAK (Rec: 04/20/20 10:11 [facility] [id number]) Knee Goniometric Range of Motion Knee Right Knee ROM WFL No Patient Position Sitting Flexion Active (degrees) 88 Extension Active (degrees) 24 Left Knee ROM WFL Yes Patient Position Sitting Flexion Active (degrees) 124 Extension Active (degrees) 0 Knee ROM Limitations Knee ROM Limitations Soft Tissue Tightness,Muscle Weakness,Pain,Swelling Comments poor quad activation PT-OP-M Strength Start: 04/19/20 08:13 Freq: Status: Active Protocol: Document 04/19/20 08:14 SAK (Rec: 04/20/20 10:11 [facility] [id number]) Knee Strength Knee Manual Muscle Testing Right Flexion (S2) 3- Fair- Extension (L3) 3- Fair- Left Flexion (S2) 5 Normal Extension (L3) 5 Normal PT-OP-Q Treatments Start: 04/19/20 08:13 Freq: Status: Active Protocol: Document 04/22/20 10:03 SAK (Rec: 04/22/20 10:32 [facility] [id number]) Cardio Equipment Recumbent Elliptical (Biodex) Duration (Minutes) 8 Resistance 1 Seat Position 10 Recumbent Bicycle Duration (Minutes) 5 Resistance 1 Seat Position 8 Therapeutic Exercises Supine Exercises SLR Reps/Minutes 5x Comments able to do indep today Sitting Exercises LAQ Reps/Minutes 10x5 Comments manual assistance for end- range Standing Exercises HC stretch Equipment Used stair Reps/Minutes 2x stair lunge Reps/Minutes 10x5 step-touch Equipment Used 6 stair Reps/Minutes 10x Gait Training Gait Activity gait with cane Device Used SPC Level of Assistance SBA Surface firm Distance/Duration 75' Treatment Focus no limp or compensation Manual Therapy Treatment Taping right knee Treatment Focus edema reduction Type of Tape kinesiotape Comments 2 fan strips Manual Techniques contract/relax Type right knee Body Position Sitting Self-Care/Home Management Treatment Education Patient Education Home Exercise Program,Pain Management PT-OP-R Modalities Start: 04/19/20 08:13 Freq: Status: Active Protocol: Document 04/22/20 10:03 [facility] (Rec: 04/22/20 10:32 [facility] [id number]) Hot Pack/Cold Pack Treatment Cold Pack Location knee Patient Position Hooklying Treatment Duration (minutes) 10 PT-OP-T Assessment and Plan Start: 04/19/20 08:13 Freq: Status: Active Protocol: Document 04/22/20 10:03 [facility] (Rec: 04/22/20 10:32 [facility] [id number]) Physical Therapy Assessment Goals Four Impairment lower extremity functional scale 39% Chcf Goal (LTG) Decrease LEFS score to no greater than 15% LTG Duration 07/19/20 Three Impairment right knee strength 3-/5 Short Term Goal (STG) Patient to be instructed in HEP for right knee strengthening and be independent and compliant STG Duration 05/26/20 Chcf Goal (LTG) Patient right knee strength to improve to at least 4+/5 LTG Duration 07/19/20 Two Impairment antalgic gait requiring FWW Short Term Goal (STG) Patient able to ambulate 200' with least restrictive device without limp STG Duration 05/26/20 Energy Manager Goal (LTG) Patient able to ambulate on level surfaces and stairs with no assistive device without limp and with alternating pattern on stairs. LTG Duration 07/19/20 One Impairment right knee AROM 24-88 Short Term Goal (STG) Improve AROM right knee to 10- 110 STG Duration 05/26/20 Chcf Goal (LTG) Improve knee AROM to 0-120 actively LTG Duration 07/19/20 Assessment Summary Assessment Right knee AROM 12-92, PROM 10 -94. Good progress with gait, though occasionally still feels knee about to give way so instructed to continue gait with FWW, practice at counter with cane. Physical Therapy Plan Frequency and Duration Frequency of Treatment 2x/Week Duration of Treatment 12 weeks Plan of Care Start Date 04/19/20 Plan of Care End Date 07/19/20 Therapeutic Interventions Therapeutic Interventions Balance Training,Gait Training ,Home Exercise Program,Joint Mobilizations,Manual Therapy, Neuromuscular Re-education, Patient/Caregiver Education, Self-Care/Home Management,Soft Tissue Mobilization,Taping, Therapeutic Activities, Therapeutic Exercises Modalities Cold Pack/Ice Massage,Electric Stimulation,Hot Packs Next Visit Focus/Plan Next Note Type Treatment Note Next Visit Plan Continue TKA rehab. Add shuttle leg press, gravity assisted knee flexion
--- NOTE | 2020-04-26 15:51 | PT.OTN ---
Current Diagnoses Bilateral primary osteoarthritis of knee (04/26/20) Difficulty in walking, not elsewhere classified (04/26/20) Weakness (04/26/20) Presence of left artificial knee joint (04/26/20) Physical Therapy Treatment Note PT-OP-A Visit Information Start: 04/19/20 08:13 Freq: Status: Active Protocol: Document 04/26/20 09:45 SAK (Rec: 04/26/20 10:33 SAK [id number]) Out-Patient Physical Therapy Visit Information Visit Information Visit Type Treatment Note Visit Start Time 09:45 Visit Stop Time 10:40 Total Visit Minutes 55 Visit Number 3 PT-OP-B Current Condition Start: 04/19/20 08:13 Freq: Status: Active Protocol: Document 04/19/20 08:14 SAK (Rec: 04/19/20 09:01 SAK [id number]) Current Condition History of Current Condition Onset Date 09/12/20 Current Complaints right knee pain History of Current Condition s/p right TKA, has been, doing HEP, has ice massage, has not been elevating. Reports minimal pain with this TKA as compared to high pain levels after last TKA. Has recovered well from left TKA. Future Testing and Treatments Planned Sees Dr. Arvizu 04/23/20 Treatment Goals Patient/Caregiver Goals Normal range of motion, strength, and walking with right LE, no assistive. Prior Functional Status Baseline Function- ADL's Independent Baseline Function- Mobility Independent Baseline Function- Gait antalgic due to pain Current Functional Impairments (Reported) Functional Limitations- ADL's painful Functional Limitations- Mobility/Gait painful, uses FWW Functional Limitations- Work/School painful Functional Limitations- Recreation/ painful Hobbies PT-OP-C Subjective Start: 04/19/20 08:13 Freq: Status: Active Protocol: Document 04/26/20 09:45 SAK (Rec: 04/26/20 10:33 SAK [id number]) OP-PT Subjective Patient Comments Patient Comments Got compression stocking, felt good, but hasn't put on yet today, thought PT would want to see his knee. Compliant to HEP. Frustrated by stiffness in am after working so hard on motion prior day. PT-OP-G Mobility & Gait Start: 04/19/20 08:13 Freq: Status: Active Protocol: Document 04/19/20 08:14 SAK (Rec: 04/20/20 10:11 [facility] [id number]) OP Gait Assessment Gait Gait Assistance Required: Standby Assistance Distance (Feet) 50 Able to Maintain Weight Bearing Status Yes During Gait Assistive Devices Assistive Device Front Wheeled Walker Orthotic/Prosthetic Devices or Brace: No Gait Deviations General Gait Pattern Antalgic,Flexed Trunk Factors Limiting Gait Function Factors Limiting Gait Function Decreased Strength,Pain Stair Climbing Evaluation Evaluation Level of Assist On Stairs Standby Assistance Technique/Endurance Stair Climbing Technique Step to Step PT-OP-H Neuro Start: 04/19/20 08:13 Freq: Status: Active Protocol: Document 04/19/20 08:14 [facility] (Rec: 04/20/20 10:11 [facility] [id number]) Sensation Evaluation Gross Sensation Gross Sensation Right LE Impaired Sensation Description Paresthesia Comments Summary Comments right knee PT-OP-J Posture/Palpation/Skin Start: 04/19/20 08:13 Freq: Status: Active Protocol: Document 04/19/20 08:14 [facility] (Rec: 04/20/20 10:11 [facility] [id number]) Palpation Assessment Location One Palpation Location right knee Palpation Findings Edema,Soft Tissue Tightness, Muscle Guarding,Tenderness Skin Assessment Incisional Assessment Incision Appearance/Comments Incision covered by post-op dressing. No signs or symptoms of infection PT-OP-K Range of Motion Start: 04/19/20 08:13 Freq: Status: Active Protocol: Document 04/19/20 08:14 [facility] (Rec: 04/20/20 10:11 [facility] [id number]) Knee Goniometric Range of Motion Knee Right Knee ROM WFL No Patient Position Sitting Flexion Active (degrees) 88 Extension Active (degrees) 24 Left Knee ROM WFL Yes Patient Position Sitting Flexion Active (degrees) 124 Extension Active (degrees) 0 Knee ROM Limitations Knee ROM Limitations Soft Tissue Tightness,Muscle Weakness,Pain,Swelling Comments poor quad activation PT-OP-M Strength Start: 04/19/20 08:13 Freq: Status: Active Protocol: Document 04/19/20 08:14 [facility] (Rec: 04/20/20 10:11 [facility] [id number]) Knee Strength Knee Manual Muscle Testing Right Flexion (S2) 3- Fair- Extension (L3) 3- Fair- Left Flexion (S2) 5 Normal Extension (L3) 5 Normal PT-OP-Q Treatments Start: 04/19/20 08:13 Freq: Status: Active Protocol: Document 04/26/20 09:45 SAK (Rec: 04/26/20 10:33 [facility] [id number]) Cardio Equipment Recumbent Bicycle Duration (Minutes) 5 Resistance 1 Seat Position 8 Bicycle (Upright) Duration (Minutes) 5 Resistance 1 Seat Position 6 Therapeutic Exercises Supine Exercises gravity assisted knee flex Reps/Minutes 4x 10 Sitting Exercises knee flex stretch Reps/Minutes 3x10 Comments use of opposite LE to assist knee flex Resistance L1 TB Reps/Minutes 10x LAQ Reps/Minutes 10x5 Comments manual assistance for end- range Standing Exercises chair squat Reps/Minutes 10x HC stretch Reps/Minutes 2x stair lunge Reps/Minutes 10x5 step-touch Equipment Used 6 stair Reps/Minutes 10x Gait Training Gait Activity gait with cane Device Used SPC Level of Assistance SBA Surface firm Distance/Duration 75', 20', 20' Treatment Focus decrease compensation Manual Therapy Treatment Manual Techniques contract/relax Type right knee Body Position Sitting Self-Care/Home Management Treatment Education Patient Education Home Exercise Program Other Education wear compression stocking to PT PT-OP-R Modalities Start: 04/19/20 08:13 Freq: Status: Active Protocol: Document 04/26/20 09:45 SAK (Rec: 04/26/20 10:33 [facility] [id number]) Hot Pack/Cold Pack Treatment Cold Pack Location knee Patient Position Hooklying Treatment Duration (minutes) 10 PT-OP-T Assessment and Plan Start: 04/19/20 08:13 Freq: Status: Active Protocol: Document 04/26/20 09:45 [facility] (Rec: 04/26/20 10:33 [facility] [id number]) Physical Therapy Assessment Goals Four Impairment lower extremity functional scale 39% [facility] Goal (LTG) Decrease LEFS score to no greater than 15% LTG Duration 07/19/20 Three Impairment right knee strength 3-/5 Short Term Goal (STG) Patient to be instructed in HEP for right knee strengthening and be independent and compliant STG Duration 05/26/20 [facility] Goal (LTG) Patient right knee strength to improve to at least 4+/5 LTG Duration 07/19/20 Two Impairment antalgic gait requiring FWW Short Term Goal (STG) Patient able to ambulate 200' with least restrictive device without limp STG Duration 05/26/20 [facility] Goal (LTG) Patient able to ambulate on level surfaces and stairs with no assistive device without limp and with alternating pattern on stairs. LTG Duration 07/19/20 One Impairment right knee AROM 24-88 Short Term Goal (STG) Improve AROM right knee to 10- 110 STG Duration 05/26/20 Railroad Car Painter Goal (LTG) Improve knee AROM to 0-120 actively LTG Duration 07/19/20 Assessment Summary Assessment right knee AROM 10-93, PROM 8- 100. Patient obtained compression stocking and reports improved swelling with use but didn't wear to PT today; instructed to wear next session. Steady progress. Physical Therapy Plan Frequency and Duration Frequency of Treatment 2x/Week Duration of Treatment 12 weeks Plan of Care Start Date 04/19/20 Plan of Care End Date 07/19/20 Therapeutic Interventions Therapeutic Interventions Balance Training,Gait Training ,Home Exercise Program,Joint Mobilizations,Manual Therapy, Neuromuscular Re-education, Patient/Caregiver Education, Self-Care/Home Management,Soft Tissue Mobilization,Taping, Therapeutic Activities, Therapeutic Exercises Modalities Cold Pack/Ice Massage,Electric Stimulation,Hot Packs Next Visit Focus/Plan Next Note Type Treatment Note Next Visit Plan Continue TKA rehab. Add shuttle leg press, ascend and descend 4 stairs
--- NOTE | 2020-04-29 16:16 | PT.OTN ---
Current Diagnoses Bilateral primary osteoarthritis of knee (04/29/20) Difficulty in walking, not elsewhere classified (04/29/20) Weakness (04/29/20) Presence of left artificial knee joint (04/29/20) Physical Therapy Treatment Note PT-OP-A Visit Information Start: 04/19/20 08:13 Freq: Status: Active Protocol: Document 04/29/20 14:21 SAK (Rec: 04/29/20 15:14 SAK [id number]) Out-Patient Physical Therapy Visit Information Visit Information Visit Type Treatment Note Visit Start Time 14:24 Visit Number 4 PT-OP-B Current Condition Start: 04/19/20 08:13 Freq: Status: Active Protocol: Document 04/19/20 08:14 SAK (Rec: 04/19/20 09:01 SAK [id number]) Current Condition History of Current Condition Onset Date 09/12/20 Current Complaints right knee pain History of Current Condition s/p right TKA, has been, doing HEP, has ice massage, has not been elevating. Reports minimal pain with this TKA as compared to high pain levels after last TKA. Has recovered well from left TKA. Future Testing and Treatments Planned Sees Dr. Arvizu 04/23/20 Treatment Goals Patient/Caregiver Goals Normal range of motion, strength, and walking with right LE, no assistive. Prior Functional Status Baseline Function- ADL's Independent Baseline Function- Mobility Independent Baseline Function- Gait antalgic due to pain Current Functional Impairments (Reported) Functional Limitations- ADL's painful Functional Limitations- Mobility/Gait painful, uses FWW Functional Limitations- Work/School painful Functional Limitations- Recreation/ painful Hobbies PT-OP-C Subjective Start: 04/19/20 08:13 Freq: Status: Active Protocol: Document 04/29/20 14:21 SAK (Rec: 04/29/20 15:14 SAK [id number]) OP-PT Subjective Patient Comments Patient Comments Has follow-up appointment 05/20, planning to return to [place] to work 05/27/20. Wearing compression stocking (thigh-high), some difficulty donning, swelling decreased. PT-OP-G Mobility & Gait Start: 04/19/20 08:13 Freq: Status: Active Protocol: Document 04/19/20 08:14 SAK (Rec: 04/20/20 10:11 SAK [id number]) OP Gait Assessment Gait Gait Assistance Required: Standby Assistance Distance (Feet) 50 Able to Maintain Weight Bearing Status Yes During Gait Assistive Devices Assistive Device Front Wheeled Walker Orthotic/Prosthetic Devices or Brace: No Gait Deviations General Gait Pattern Antalgic,Flexed Trunk Factors Limiting Gait Function Factors Limiting Gait Function Decreased Strength,Pain Stair Climbing Evaluation Evaluation Level of Assist On Stairs Standby Assistance Technique/Endurance Stair Climbing Technique Step to Step PT-OP-H Neuro Start: 04/19/20 08:13 Freq: Status: Active Protocol: Document 04/19/20 08:14 [facility] (Rec: 04/20/20 10:11 [facility] [id number]) Sensation Evaluation Gross Sensation Gross Sensation Right LE Impaired Sensation Description Paresthesia Comments Summary Comments right knee PT-OP-J Posture/Palpation/Skin Start: 04/19/20 08:13 Freq: Status: Active Protocol: Document 04/19/20 08:14 [facility] (Rec: 04/20/20 10:11 [facility] [id number]) Palpation Assessment Location One Palpation Location right knee Palpation Findings Edema,Soft Tissue Tightness, Muscle Guarding,Tenderness Skin Assessment Incisional Assessment Incision Appearance/Comments Incision covered by post-op dressing. No signs or symptoms of infection PT-OP-K Range of Motion Start: 04/19/20 08:13 Freq: Status: Active Protocol: Document 04/19/20 08:14 [facility] (Rec: 04/20/20 10:11 [facility] [id number]) Knee Goniometric Range of Motion Knee Right Knee ROM WFL No Patient Position Sitting Flexion Active (degrees) 88 Extension Active (degrees) 24 Left Knee ROM WFL Yes Patient Position Sitting Flexion Active (degrees) 124 Extension Active (degrees) 0 Knee ROM Limitations Knee ROM Limitations Soft Tissue Tightness,Muscle Weakness,Pain,Swelling Comments poor quad activation PT-OP-M Strength Start: 04/19/20 08:13 Freq: Status: Active Protocol: Document 04/19/20 08:14 [facility] (Rec: 04/20/20 10:11 [facility] [id number]) Knee Strength Knee Manual Muscle Testing Right Flexion (S2) 3- Fair- Extension (L3) 3- Fair- Left Flexion (S2) 5 Normal Extension (L3) 5 Normal PT-OP-Q Treatments Start: 04/19/20 08:13 Freq: Status: Active Protocol: Document 04/29/20 14:21 [facility] (Rec: 04/29/20 15:14 [facility] [id number]) Cardio Equipment Bicycle (Upright) Duration (Minutes) 10 Resistance 1 Seat Position 7-5 Gym Equipment Shuttle Recovery Bilateral Heel Raises Resistance 25 Shuttle Recovery Platform Stable Reps/Time 10x2 Bilateral Squats Resistance 50 Shuttle Recovery Platform Stable Reps/Time 10x2 Therapeutic Exercises Supine Exercises gravity assisted knee flex Reps/Minutes 4x 10 Sitting Exercises knee flex Resistance L1 TB Reps/Minutes 10x LAQ Reps/Minutes 10x5 Comments manual assistance for end- range Standing Exercises HC stretch Reps/Minutes 2x Gait Training Gait Activity gait with cane Device Used SPC Level of Assistance SBA Surface firm Distance/Duration 50',50' Treatment Focus decrease compensation Comments mirror for visual feedback to decrease compensation/limp; no limp with use of mirror Manual Therapy Treatment Soft Tissue Mobilization right quads Mobilization Type Strumming Intensity/Depth Moderate Body Position Hooklying Joint Mobilizations patella Direction med/lat/sup/inf Grade II Body Position Supine Self-Care/Home Management Treatment Education Other Education increase emphasis on stretching into knee extension PT-OP-R Modalities Start: 04/19/20 08:13 Freq: Status: Active Protocol: Document 04/29/20 14:21 [facility] (Rec: 04/29/20 15:14 [facility] [id number]) Hot Pack/Cold Pack Treatment Cold Pack Location knee Patient Position Hooklying Treatment Duration (minutes) 10 PT-OP-T Assessment and Plan Start: 04/19/20 08:13 Freq: Status: Active Protocol: Document 04/29/20 14:21 [facility] (Rec: 04/29/20 15:14 [facility] [id number]) Physical Therapy Assessment Goals Four Impairment lower extremity functional scale 39% [facility] Goal (LTG) Decrease LEFS score to no greater than 15% LTG Duration 07/19/20 Three Impairment right knee strength 3-/5 Short Term Goal (STG) Patient to be instructed in HEP for right knee strengthening and be independent and compliant STG Duration 05/26/20 It Project Manager Goal (LTG) Patient right knee strength to improve to at least 4+/5 LTG Duration 07/19/20 Two Impairment antalgic gait requiring FWW Short Term Goal (STG) Patient able to ambulate 200' with least restrictive device without limp STG Duration 05/26/20 [facility] Goal (LTG) Patient able to ambulate on level surfaces and stairs with no assistive device without limp and with alternating pattern on stairs. LTG Duration 07/19/20 One Impairment right knee AROM 24-88 Short Term Goal (STG) Improve AROM right knee to 10- 110 STG Duration 05/26/20 [facility] Goal (LTG) Improve knee AROM to 0-120 actively LTG Duration 07/19/20 Assessment Summary Assessment right knee AROM 10-98, PROM 6- 113. Excellent progress, patient highly compliant to HEP and wearing compression stocking now. Nothing new from physician appointment; reports Dr. Arvizu was pleased. Physical Therapy Plan Frequency and Duration Frequency of Treatment 2x/Week Duration of Treatment 12 weeks Plan of Care Start Date 04/19/20 Plan of Care End Date 07/19/20 Therapeutic Interventions Therapeutic Interventions Balance Training,Gait Training ,Home Exercise Program,Joint Mobilizations,Manual Therapy, Neuromuscular Re-education, Patient/Caregiver Education, Self-Care/Home Management,Soft Tissue Mobilization,Taping, Therapeutic Activities, Therapeutic Exercises Modalities Cold Pack/Ice Massage,Electric Stimulation,Hot Packs Next Visit Focus/Plan Next Note Type Treatment Note Next Visit Plan Continue TKA rehab, emphasis on eliminating limp with gait, continued ROM and strengthening
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
--- NOTE | 2020-05-05 11:42 | PT.OTN ---
Current Diagnoses Bilateral primary osteoarthritis of knee (05/05/20) Difficulty in walking, not elsewhere classified (05/05/20) Weakness (05/05/20) Presence of left artificial knee joint (05/05/20) Physical Therapy Treatment Note PT-OP-A Visit Information Start: 04/19/20 08:13 Freq: Status: Active Protocol: Document 05/05/20 09:45 SAK (Rec: 05/05/20 10:31 SAK [id number]) Out-Patient Physical Therapy Visit Information Visit Information Visit Type Treatment Note Visit Start Time 09:00 Visit Stop Time 09:56 Total Visit Minutes 56 Visit Number 5 PT-OP-B Current Condition Start: 04/19/20 08:13 Freq: Status: Active Protocol: Document 04/19/20 08:14 SAK (Rec: 04/19/20 09:01 SAK [id number]) Current Condition History of Current Condition Onset Date 09/12/20 Current Complaints right knee pain History of Current Condition s/p right TKA, has been, doing HEP, has ice massage, has not been elevating. Reports minimal pain with this TKA as compared to high pain levels after last TKA. Has recovered well from left TKA. Future Testing and Treatments Planned Sees Dr. Arvizu 04/23/20 Treatment Goals Patient/Caregiver Goals Normal range of motion, strength, and walking with right LE, no assistive. Prior Functional Status Baseline Function- ADL's Independent Baseline Function- Mobility Independent Baseline Function- Gait antalgic due to pain Current Functional Impairments (Reported) Functional Limitations- ADL's painful Functional Limitations- Mobility/Gait painful, uses FWW Functional Limitations- Work/School painful Functional Limitations- Recreation/ painful Hobbies PT-OP-C Subjective Start: 04/19/20 08:13 Freq: Status: Active Protocol: Document 05/05/20 09:45 SAK (Rec: 05/05/20 10:31 SAK [id number]) OP-PT Subjective Patient Comments Patient Comments Reports he slept 5 hours in a row last night for first time since surgery. Sore from increased walking yesterday. Comes to PT carrying SPC but limping. No compression stocking due to family being gone when he got up this am. PT-OP-G Mobility & Gait Start: 04/19/20 08:13 Freq: Status: Active Protocol: Document 04/19/20 08:14 SAK (Rec: 04/20/20 10:11 [facility] [id number]) OP Gait Assessment Gait Gait Assistance Required: Standby Assistance Distance (Feet) 50 Able to Maintain Weight Bearing Status Yes During Gait Assistive Devices Assistive Device Front Wheeled Walker Orthotic/Prosthetic Devices or Brace: No Gait Deviations General Gait Pattern Antalgic,Flexed Trunk Factors Limiting Gait Function Factors Limiting Gait Function Decreased Strength,Pain Stair Climbing Evaluation Evaluation Level of Assist On Stairs Standby Assistance Technique/Endurance Stair Climbing Technique Step to Step PT-OP-H Neuro Start: 04/19/20 08:13 Freq: Status: Active Protocol: Document 04/19/20 08:14 [facility] (Rec: 04/20/20 10:11 [facility] [id number]) Sensation Evaluation Gross Sensation Gross Sensation Right LE Impaired Sensation Description Paresthesia Comments Summary Comments right knee PT-OP-J Posture/Palpation/Skin Start: 04/19/20 08:13 Freq: Status: Active Protocol: Document 04/19/20 08:14 [facility] (Rec: 04/20/20 10:11 [facility] [id number]) Palpation Assessment Location One Palpation Location right knee Palpation Findings Edema,Soft Tissue Tightness, Muscle Guarding,Tenderness Skin Assessment Incisional Assessment Incision Appearance/Comments Incision covered by post-op dressing. No signs or symptoms of infection PT-OP-K Range of Motion Start: 04/19/20 08:13 Freq: Status: Active Protocol: Document 04/19/20 08:14 [facility] (Rec: 04/20/20 10:11 [facility] [id number]) Knee Goniometric Range of Motion Knee Right Knee ROM WFL No Patient Position Sitting Flexion Active (degrees) 88 Extension Active (degrees) 24 Left Knee ROM WFL Yes Patient Position Sitting Flexion Active (degrees) 124 Extension Active (degrees) 0 Knee ROM Limitations Knee ROM Limitations Soft Tissue Tightness,Muscle Weakness,Pain,Swelling Comments poor quad activation PT-OP-M Strength Start: 04/19/20 08:13 Freq: Status: Active Protocol: Document 04/19/20 08:14 [facility] (Rec: 04/20/20 10:11 [facility] [id number]) Knee Strength Knee Manual Muscle Testing Right Flexion (S2) 3- Fair- Extension (L3) 3- Fair- Left Flexion (S2) 5 Normal Extension (L3) 5 Normal PT-OP-Q Treatments Start: 04/19/20 08:13 Freq: Status: Active Protocol: Document 05/05/20 09:45 [facility] (Rec: 05/05/20 10:31 [facility] [id number]) Cardio Equipment Bicycle (Upright) Duration (Minutes) 10 Resistance 3 Seat Position 6-4 Gym Equipment Shuttle Recovery Unilateral Squats Resistance 37 Shuttle Recovery Platform Stable Reps/Time 10x2 Bilateral Squats Resistance 62 Shuttle Recovery Platform Stable Reps/Time 10x2 Shuttle Balance chains red Details balance and weight shift fwd/ bck, balance side to side Reps/Duration 5 min chains blue Details balance EO, EC, head turns Reps/Duration 3 min Therapeutic Exercises Supine Exercises gravity assisted knee flex Reps/Minutes 4x 10 Standing Exercises knee extension Resistance L2 TB Reps/Minutes 10x5 Gait Training Gait Activity stairs Description 4, 6 Device Used bilateral railing Level of Assistance SBA, cues Surface firm, 4 stairs x 1, 6 stairs x 1 Treatment Focus alternating pattern Comments Painful 6, instructed patient to continue step-to pattern at home gait without device Device Used none Level of Assistance SBA, verbal cues Surface firm Distance/Duration 150 Treatment Focus decrease compensation/limp gait with cane Device Used none Level of Assistance SBA Surface firm Distance/Duration 150' Treatment Focus decrease compensation/limp Comments mirror for visual feedback to decrease compensation/limp; no limp with use of mirror Manual Therapy Treatment Soft Tissue Mobilization right quads Mobilization Type Instrument Assisted,Myofascial Release,Strumming Intensity/Depth Moderate Body Position Hooklying Joint Mobilizations patella Direction med/lat/sup/inf Grade II Body Position Supine PT-OP-R Modalities Start: 04/19/20 08:13 Freq: Status: Active Protocol: Document 05/05/20 09:45 [facility] (Rec: 05/05/20 10:31 [facility] [id number]) Hot Pack/Cold Pack Treatment Cold Pack Location knee Patient Position Hooklying Treatment Duration (minutes) 10 PT-OP-T Assessment and Plan Start: 04/19/20 08:13 Freq: Status: Active Protocol: Document 05/05/20 09:45 [facility] (Rec: 05/05/20 10:31 [facility] [id number]) Physical Therapy Assessment Goals Four Impairment lower extremity functional scale 39% Payroll Technician Goal (LTG) Decrease LEFS score to no greater than 15% LTG Duration 07/19/20 Three Impairment right knee strength 3-/5 Short Term Goal (STG) Patient to be instructed in HEP for right knee strengthening and be independent and compliant STG Duration 05/26/20 Nursing Home Goal (LTG) Patient right knee strength to improve to at least 4+/5 LTG Duration 07/19/20 Two Impairment antalgic gait requiring FWW Short Term Goal (STG) Patient able to ambulate 200' with least restrictive device without limp STG Duration 05/26/20 Payroll Technician Goal (LTG) Patient able to ambulate on level surfaces and stairs with no assistive device without limp and with alternating pattern on stairs. LTG Duration 07/19/20 One Impairment right knee AROM 24-88 Short Term Goal (STG) Improve AROM right knee to 10- 110 STG Duration 05/26/20 Payroll Technician Goal (LTG) Improve knee AROM to 0-120 actively LTG Duration 07/19/20 Progress Towards Goals Progress Towards Goals Progressing Toward Goals Assessment Summary Assessment right knee AROM 7-118 today, no improvement due to increase in swelling without compression stocking. Gait improves with repetition in front of the mirror. Able to increase resistance to 62# with leg press but gait on 6 stairs still requires alternating pattern. Patient encouraged to use donning aid if family not available to assist; shown more rigid donning aid that may be more helpful than what he currently has. Physical Therapy Plan Frequency and Duration Frequency of Treatment 2x/Week Duration of Treatment 12 weeks Plan of Care Start Date 04/19/20 Plan of Care End Date 07/19/20 Therapeutic Interventions Therapeutic Interventions Balance Training,Gait Training ,Home Exercise Program,Joint Mobilizations,Manual Therapy, Neuromuscular Re-education, Patient/Caregiver Education, Self-Care/Home Management,Soft Tissue Mobilization,Taping, Therapeutic Activities, Therapeutic Exercises Modalities Cold Pack/Ice Massage,Electric Stimulation,Hot Packs Next Visit Focus/Plan Next Note Type Treatment Note Next Visit Plan gait training with and without cane on level surfaces and stairs, uneven surfaces, increase knee ROM and strength .
--- NOTE | 2020-05-10 09:19 | PT.OTN ---
Current Diagnoses Bilateral primary osteoarthritis of knee (05/10/20) Difficulty in walking, not elsewhere classified (05/10/20) Weakness (05/10/20) Presence of left artificial knee joint (05/10/20) Physical Therapy Treatment Note PT-OP-A Visit Information Start: 04/19/20 08:13 Freq: Status: Active Protocol: Document 05/10/20 08:12 SAK (Rec: 05/10/20 09:19 SAK [id number]) Out-Patient Physical Therapy Visit Information Visit Information Visit Type Treatment Note Visit Start Time 08:15 Visit Stop Time 08:10 Total Visit Minutes 55 Visit Number 6 PT-OP-B Current Condition Start: 04/19/20 08:13 Freq: Status: Active Protocol: Document 04/19/20 08:14 SAK (Rec: 04/19/20 09:01 SAK [id number]) Current Condition History of Current Condition Onset Date 09/12/20 Current Complaints right knee pain History of Current Condition s/p right TKA, has been, doing HEP, has ice massage, has not been elevating. Reports minimal pain with this TKA as compared to high pain levels after last TKA. Has recovered well from left TKA. Future Testing and Treatments Planned Sees Dr. Arvizu 04/23/20 Treatment Goals Patient/Caregiver Goals Normal range of motion, strength, and walking with right LE, no assistive. Prior Functional Status Baseline Function- ADL's Independent Baseline Function- Mobility Independent Baseline Function- Gait antalgic due to pain Current Functional Impairments (Reported) Functional Limitations- ADL's painful Functional Limitations- Mobility/Gait painful, uses FWW Functional Limitations- Work/School painful Functional Limitations- Recreation/ painful Hobbies PT-OP-C Subjective Start: 04/19/20 08:13 Freq: Status: Active Protocol: Document 05/10/20 08:12 SAK (Rec: 05/10/20 09:19 SAK [id number]) OP-PT Subjective Patient Comments Patient Comments Patient reports compliant to HEP, slept through the night last night, has been rubbing his thigh but hasn't started scar massage yet. Some clicking of knee and pain distal thigh but still nothing like his first TKA. Plans to return home to [place] end of next week PT-OP-G Mobility & Gait Start: 04/19/20 08:13 Freq: Status: Active Protocol: Document 04/19/20 08:14 SAK (Rec: 04/20/20 10:11 [facility] [id number]) OP Gait Assessment Gait Gait Assistance Required: Standby Assistance Distance (Feet) 50 Able to Maintain Weight Bearing Status Yes During Gait Assistive Devices Assistive Device Front Wheeled Walker Orthotic/Prosthetic Devices or Brace: No Gait Deviations General Gait Pattern Antalgic,Flexed Trunk Factors Limiting Gait Function Factors Limiting Gait Function Decreased Strength,Pain Stair Climbing Evaluation Evaluation Level of Assist On Stairs Standby Assistance Technique/Endurance Stair Climbing Technique Step to Step PT-OP-H Neuro Start: 04/19/20 08:13 Freq: Status: Active Protocol: Document 04/19/20 08:14 SAK (Rec: 04/20/20 10:11 [facility] [id number]) Sensation Evaluation Gross Sensation Gross Sensation Right LE Impaired Sensation Description Paresthesia Comments Summary Comments right knee PT-OP-J Posture/Palpation/Skin Start: 04/19/20 08:13 Freq: Status: Active Protocol: Document 04/19/20 08:14 SAK (Rec: 04/20/20 10:11 [facility] [id number]) Palpation Assessment Location One Palpation Location right knee Palpation Findings Edema,Soft Tissue Tightness, Muscle Guarding,Tenderness Skin Assessment Incisional Assessment Incision Appearance/Comments Incision covered by post-op dressing. No signs or symptoms of infection PT-OP-K Range of Motion Start: 04/19/20 08:13 Freq: Status: Active Protocol: Document 04/19/20 08:14 SAK (Rec: 04/20/20 10:11 [facility] [id number]) Knee Goniometric Range of Motion Knee Right Knee ROM WFL No Patient Position Sitting Flexion Active (degrees) 88 Extension Active (degrees) 24 Left Knee ROM WFL Yes Patient Position Sitting Flexion Active (degrees) 124 Extension Active (degrees) 0 Knee ROM Limitations Knee ROM Limitations Soft Tissue Tightness,Muscle Weakness,Pain,Swelling Comments poor quad activation PT-OP-M Strength Start: 04/19/20 08:13 Freq: Status: Active Protocol: Document 04/19/20 08:14 SAK (Rec: 04/20/20 10:11 SAK [id number]) Knee Strength Knee Manual Muscle Testing Right Flexion (S2) 3- Fair- Extension (L3) 3- Fair- Left Flexion (S2) 5 Normal Extension (L3) 5 Normal PT-OP-Q Treatments Start: 04/19/20 08:13 Freq: Status: Active Protocol: Document 05/10/20 08:12 SAK (Rec: 05/10/20 09:19 SAK [id number]) Cardio Equipment Bicycle (Upright) Duration (Minutes) 10 Resistance 3 Seat Position 5-3 Other cues for circular motion, use of hamstrings Gym Equipment Shuttle Recovery Unilateral Squats Resistance 37 Shuttle Recovery Platform Stable Reps/Time 10x2 Bilateral Squats Resistance 62 Shuttle Recovery Platform Stable Reps/Time 10x2 Shuttle Balance chains red Details balance and weight shift fwd/ bck, side to side Reps/Duration 5 min Therapeutic Exercises Sitting Exercises knee flex Resistance L2 TB Reps/Minutes 10x Comments issued L2 TB LAQ Reps/Minutes 10x5 Comments manual assistance for end- range Standing Exercises knee extension Resistance L2 TB Reps/Minutes 10x5 Gait Training Gait Activity stairs Description 4 Device Used 1 railing, SPC Level of Assistance SBA, cues Surface firm, 4 stairs x 3 Treatment Focus alternating pattern gait with cane Device Used SPC, none Level of Assistance SBA Surface firm Distance/Duration 200' Treatment Focus decrease compensation/limp Comments some with mirror for visual feedback to decrease compensation/limp; no limp with use of mirror Manual Therapy Treatment Soft Tissue Mobilization scar Mobilization Type Myofascial Release,Rolling Intensity/Depth Moderate Comments proximal scar; suprapatellar region right quads Mobilization Type Myofascial Release,Strumming Intensity/Depth Moderate Body Position Hooklying Joint Mobilizations patella Direction med/lat/sup/inf Grade II Body Position Supine PT-OP-R Modalities Start: 04/19/20 08:13 Freq: Status: Active Protocol: Document 05/10/20 08:12 [facility] (Rec: 05/10/20 09:19 [facility] [id number]) Hot Pack/Cold Pack Treatment Cold Pack Location knee Patient Position Hooklying Treatment Duration (minutes) 10 PT-OP-T Assessment and Plan Start: 04/19/20 08:13 Freq: Status: Active Protocol: Document 05/10/20 08:12 SAK (Rec: 05/10/20 09:19 SAK [id number]) Physical Therapy Assessment Goals Four Impairment lower extremity functional scale 39% Prison Goal (LTG) Decrease LEFS score to no greater than 15% LTG Duration 07/19/20 Three Impairment right knee strength 3-/5 Short Term Goal (STG) Patient to be instructed in HEP for right knee strengthening and be independent and compliant STG Duration 05/26/20 Floorwalker Goal (LTG) Patient right knee strength to improve to at least 4+/5 LTG Duration 07/19/20 Two Impairment antalgic gait requiring FWW Short Term Goal (STG) Patient able to ambulate 200' with least restrictive device without limp STG Duration 05/26/20 Floorwalker Goal (LTG) Patient able to ambulate on level surfaces and stairs with no assistive device without limp and with alternating pattern on stairs. LTG Duration 07/19/20 One Impairment right knee AROM 24-88 Short Term Goal (STG) Improve AROM right knee to 10- 110 STG Duration 05/26/20 Floorwalker Goal (LTG) Improve knee AROM to 0-120 actively LTG Duration 07/19/20 Progress Towards Goals Progress Towards Goals Progressing Toward Goals Assessment Summary Assessment right knee AROM.5-120. Able to start scar massage proximal aspect and instructed patient to do at home. Lacking terminal extension but continues to progress well. Gait quality improves with verbal and manual feedback, often limps upon initially starting. Physical Therapy Plan Frequency and Duration Frequency of Treatment 2x/Week Duration of Treatment 12 weeks Plan of Care Start Date 04/19/20 Plan of Care End Date 07/19/20 Therapeutic Interventions Therapeutic Interventions Balance Training,Gait Training ,Home Exercise Program,Joint Mobilizations,Manual Therapy, Neuromuscular Re-education, Patient/Caregiver Education, Self-Care/Home Management,Soft Tissue Mobilization,Taping, Therapeutic Activities, Therapeutic Exercises Modalities Cold Pack/Ice Massage,Electric Stimulation,Hot Packs Next Visit Focus/Plan Next Note Type Treatment Note Next Visit Plan Consider sport cord for resisted gait training, work terminal knee extension with possible prone stretch into extension. Add hip abduction strengthening. Scar and patellar mobilization
--- NOTE | 2020-05-12 14:10 | PT.OTN ---
Current Diagnoses Bilateral primary osteoarthritis of knee (05/12/20) Difficulty in walking, not elsewhere classified (05/12/20) Weakness (05/12/20) Presence of left artificial knee joint (05/12/20) Physical Therapy Treatment Note PT-OP-A Visit Information Start: 04/19/20 08:13 Freq: Status: Active Protocol: Document 05/12/20 13:03 [facility] (Rec: 05/12/20 14:10 [facility] [id number]) Out-Patient Physical Therapy Visit Information Visit Information Visit Type Treatment Note Visit Start Time 13:00 Visit Stop Time 13:45 Total Visit Minutes 45 Visit Number 7 Number of TUBE MACHINE OPERATOR Visits 0 PT-OP-B Current Condition Start: 04/19/20 08:13 Freq: Status: Active Protocol: Document 04/19/20 08:14 SAK (Rec: 04/19/20 09:01 SAK [id number]) Current Condition History of Current Condition Onset Date 09/12/20 Current Complaints right knee pain History of Current Condition s/p right TKA, has been, doing HEP, has ice massage, has not been elevating. Reports minimal pain with this TKA as compared to high pain levels after last TKA. Has recovered well from left TKA. Future Testing and Treatments Planned Sees Dr. Arvizu 04/23/20 Treatment Goals Patient/Caregiver Goals Normal range of motion, strength, and walking with right LE, no assistive. Prior Functional Status Baseline Function- ADL's Independent Baseline Function- Mobility Independent Baseline Function- Gait antalgic due to pain Current Functional Impairments (Reported) Functional Limitations- ADL's painful Functional Limitations- Mobility/Gait painful, uses FWW Functional Limitations- Work/School painful Functional Limitations- Recreation/ painful Hobbies PT-OP-C Subjective Start: 04/19/20 08:13 Freq: Status: Active Protocol: Document 05/12/20 13:03 [facility] (Rec: 05/12/20 14:10 [facility] [id number]) OP-PT Subjective Patient Comments Patient Comments Pt reports he sometimes has pain when he lays down flat at night. Its mostly just the thigh mm and a little bit into knee. PT-OP-G Mobility & Gait Start: 04/19/20 08:13 Freq: Status: Active Protocol: Document 04/19/20 08:14 SAK (Rec: 04/20/20 10:11 SAK [id number]) OP Gait Assessment Gait Gait Assistance Required: Standby Assistance Distance (Feet) 50 Able to Maintain Weight Bearing Status Yes During Gait Assistive Devices Assistive Device Front Wheeled Walker Orthotic/Prosthetic Devices or Brace: No Gait Deviations General Gait Pattern Antalgic,Flexed Trunk Factors Limiting Gait Function Factors Limiting Gait Function Decreased Strength,Pain Stair Climbing Evaluation Evaluation Level of Assist On Stairs Standby Assistance Technique/Endurance Stair Climbing Technique Step to Step PT-OP-H Neuro Start: 04/19/20 08:13 Freq: Status: Active Protocol: Document 04/19/20 08:14 [facility] (Rec: 04/20/20 10:11 [facility] [id number]) Sensation Evaluation Gross Sensation Gross Sensation Right LE Impaired Sensation Description Paresthesia Comments Summary Comments right knee PT-OP-J Posture/Palpation/Skin Start: 04/19/20 08:13 Freq: Status: Active Protocol: Document 04/19/20 08:14 [facility] (Rec: 04/20/20 10:11 [facility] [id number]) Palpation Assessment Location One Palpation Location right knee Palpation Findings Edema,Soft Tissue Tightness, Muscle Guarding,Tenderness Skin Assessment Incisional Assessment Incision Appearance/Comments Incision covered by post-op dressing. No signs or symptoms of infection PT-OP-K Range of Motion Start: 04/19/20 08:13 Freq: Status: Active Protocol: Document 04/19/20 08:14 [facility] (Rec: 04/20/20 10:11 [facility] [id number]) Knee Goniometric Range of Motion Knee Right Knee ROM WFL No Patient Position Sitting Flexion Active (degrees) 88 Extension Active (degrees) 24 Left Knee ROM WFL Yes Patient Position Sitting Flexion Active (degrees) 124 Extension Active (degrees) 0 Knee ROM Limitations Knee ROM Limitations Soft Tissue Tightness,Muscle Weakness,Pain,Swelling Comments poor quad activation PT-OP-M Strength Start: 04/19/20 08:13 Freq: Status: Active Protocol: Document 04/19/20 08:14 [facility] (Rec: 04/20/20 10:11 [facility] [id number]) Knee Strength Knee Manual Muscle Testing Right Flexion (S2) 3- Fair- Extension (L3) 3- Fair- Left Flexion (S2) 5 Normal Extension (L3) 5 Normal PT-OP-Q Treatments Start: 04/19/20 08:13 Freq: Status: Active Protocol: Document 04/07/21 13:03 [facility] (Rec: 05/12/20 14:10 [facility] [id number]) Cardio Equipment Bicycle (Upright) Duration (Minutes) 10 Resistance 3 Seat Position 5-3 Other cues for circular motion, use of hamstrings Gym Equipment Shuttle Recovery Unilateral Squats Details B Resistance 62 Shuttle Recovery Platform Stable Reps/Time 10x2 Bilateral Squats Resistance 100#, 125# Shuttle Recovery Platform Stable Reps/Time 10x2 Sport Cord green Exercise Details fwd walk focus on push off Cord/Resistance green Reps/Duration 8 Therapeutic Exercises Standing Exercises hip hike Standing Exercise Name 4 in step Side right Equipment Used rail Reps/Minutes 10 Comments partial range Gait Training Gait Activity wt shifts Description fwd in mirror no AD Treatment Focus focus on no lat leans Comments initally wt shift fwd then progressed to step through B- focus on RLE wt acceptance stairs Description 5in Distance/Duration 10 ea Comments 1. step up in mirror w/o rail 2. partial decent w/rail gait without device Device Used none Level of Assistance SBA, verbal cues Surface firm Distance/Duration mirror mult reps Treatment Focus decrease compensation/limp Manual Therapy Treatment Soft Tissue Mobilization scar Mobilization Type Myofascial Release,Rolling Intensity/Depth Moderate Joint Mobilizations patella Direction med/sup/inf Grade III Body Position Supine PT-OP-R Modalities Start: 04/19/20 08:13 Freq: Status: Active Protocol: Document 05/12/20 13:03 [facility] (Rec: 05/12/20 14:10 [facility] [id number]) Hot Pack/Cold Pack Treatment Cold Pack Location knee Patient Position Hooklying Treatment Duration (minutes) 10 PT-OP-T Assessment and Plan Start: 04/19/20 08:13 Freq: Status: Active Protocol: Document 05/12/20 13:03 [facility] (Rec: 05/12/20 14:10 [facility] [id number]) Physical Therapy Assessment Goals Four Impairment lower extremity functional scale 39% French Tutor Goal (LTG) Decrease LEFS score to no greater than 15% LTG Duration 07/19/20 Three Impairment right knee strength 3-/5 Short Term Goal (STG) Patient to be instructed in [facility] for right knee strengthening and be independent and compliant STG Duration 05/26/20 Half-Way Goal (LTG) Patient right knee strength to improve to at least 4+/5 LTG Duration 07/19/20 Two Impairment antalgic gait requiring FWW Short Term Goal (STG) Patient able to ambulate 200' with least restrictive device without limp STG Duration 05/26/20 Half-Way Goal (LTG) Patient able to ambulate on level surfaces and stairs with no assistive device without limp and with alternating pattern on stairs. LTG Duration 07/19/20 One Impairment right knee AROM 24-88 Short Term Goal (STG) Improve AROM right knee to 10- 110 STG Duration 05/26/20 Half-Way Goal (LTG) Improve knee AROM to 0-120 actively LTG Duration 07/19/20 Assessment Summary Assessment Pt had improved gait with education and cueing for full wt acceptance and push off w/ RLE and also required cueing re: allowing knee to bend during giat. He still has weakness w/terminal quad ext and w/quad contorl for decent with stairs and required cues w/leg press to go slower w/ eccentric motion. Physical Therapy Plan Frequency and Duration Frequency of Treatment 2x/Week Duration of Treatment 12 weeks Plan of Care Start Date 04/19/20 Plan of Care End Date 07/19/20 Next Visit Focus/Plan Next Note Type Treatment Note Next Visit Plan cont to work on gait & quad/ glute strengthening & ability to decend stairs
--- NOTE | 2020-05-18 12:00 | PT.OTN ---
Current Diagnoses Bilateral primary osteoarthritis of knee (05/18/20) Difficulty in walking, not elsewhere classified (05/18/20) Weakness (05/18/20) Presence of left artificial knee joint (05/18/20) Physical Therapy Treatment Note PT-OP-A Visit Information Start: 04/19/20 08:13 Freq: Status: Active Protocol: Document 05/18/20 12:00 [facility] (Rec: 05/18/20 12:06 AW [id number]) Out-Patient Physical Therapy Visit Information Visit Information Visit Type Treatment Note Visit Start Time 11:15 Visit Stop Time 12:00 Total Visit Minutes 45 Visit Number 8 Number of PAGE DESIGNER Visits 0 PT-OP-B Current Condition Start: 04/19/20 08:13 Freq: Status: Active Protocol: Document 04/19/20 08:14 SAK (Rec: 04/19/20 09:01 SAK [id number]) Current Condition History of Current Condition Onset Date 09/12/20 Current Complaints right knee pain History of Current Condition s/p right TKA, has been, doing HEP, has ice massage, has not been elevating. Reports minimal pain with this TKA as compared to high pain levels after last TKA. Has recovered well from left TKA. Future Testing and Treatments Planned Sees Dr. Arvizu 04/23/20 Treatment Goals Patient/Caregiver Goals Normal range of motion, strength, and walking with right LE, no assistive. Prior Functional Status Baseline Function- ADL's Independent Baseline Function- Mobility Independent Baseline Function- Gait antalgic due to pain Current Functional Impairments (Reported) Functional Limitations- ADL's painful Functional Limitations- Mobility/Gait painful, uses FWW Functional Limitations- Work/School painful Functional Limitations- Recreation/ painful Hobbies PT-OP-C Subjective Start: 04/19/20 08:13 Freq: Status: Active Protocol: Document 05/18/20 12:00 [facility] (Rec: 05/18/20 12:06 AW [id number]) OP-PT Subjective Patient Comments Patient Comments Pt has ortho follow up tomorrow morning. He plans to drive back to [place] on morning, plans to take several breaks along the way. PT-OP-G Mobility & Gait Start: 04/19/20 08:13 Freq: Status: Active Protocol: Document 04/19/20 08:14 SAK (Rec: 04/20/20 10:11 SAK [id number]) OP Gait Assessment Gait Gait Assistance Required: Standby Assistance Distance (Feet) 50 Able to Maintain Weight Bearing Status Yes During Gait Assistive Devices Assistive Device Front Wheeled Walker Orthotic/Prosthetic Devices or Brace: No Gait Deviations General Gait Pattern Antalgic,Flexed Trunk Factors Limiting Gait Function Factors Limiting Gait Function Decreased Strength,Pain Stair Climbing Evaluation Evaluation Level of Assist On Stairs Standby Assistance Technique/Endurance Stair Climbing Technique Step to Step PT-OP-H Neuro Start: 04/19/20 08:13 Freq: Status: Active Protocol: Document 04/19/20 08:14 [facility] (Rec: 04/20/20 10:[address] [facility] [id number]) Sensation Evaluation Gross Sensation Gross Sensation Right LE Impaired Sensation Description Paresthesia Comments Summary Comments right knee PT-OP-J Posture/Palpation/Skin Start: 04/19/20 08:13 Freq: Status: Active Protocol: Document 04/19/20 08:14 [facility] (Rec: 04/20/20 10:[address] [facility] [id number]) Palpation Assessment Location One Palpation Location right knee Palpation Findings Edema,Soft Tissue Tightness, Muscle Guarding,Tenderness Skin Assessment Incisional Assessment Incision Appearance/Comments Incision covered by post-op dressing. No signs or symptoms of infection PT-OP-K Range of Motion Start: 04/19/20 08:13 Freq: Status: Active Protocol: Document 04/19/20 08:14 [facility] (Rec: 04/20/20 10:11 [facility] [id number]) Knee Goniometric Range of Motion Knee Right Knee ROM WFL No Patient Position Sitting Flexion Active (degrees) 88 Extension Active (degrees) 24 Left Knee ROM WFL Yes Patient Position Sitting Flexion Active (degrees) 124 Extension Active (degrees) 0 Knee ROM Limitations Knee ROM Limitations Soft Tissue Tightness,Muscle Weakness,Pain,Swelling Comments poor quad activation PT-OP-M Strength Start: 04/19/20 08:13 Freq: Status: Active Protocol: Document 04/19/20 08:14 [facility] (Rec: 04/20/20 10:11 [facility] [id number]) Knee Strength Knee Manual Muscle Testing Right Flexion (S2) 3- Fair- Extension (L3) 3- Fair- Left Flexion (S2) 5 Normal Extension (L3) 5 Normal PT-OP-Q Treatments Start: 04/19/20 08:13 Freq: Status: Active Protocol: Document 04/13/21 12:00 AW (Rec: 05/18/20 12:06 AW [id number]) Cardio Equipment Bicycle (Upright) Duration (Minutes) 10 Resistance 3 Seat Position 5-3 Other cues for circular motion, use of hamstrings Gym Equipment Sport Cord green Exercise Details fwd walk focus on push off Cord/Resistance green Reps/Duration 8 Therapeutic Exercises Standing Exercises hip hike Standing Exercise Name 4 in step Side right Equipment Used rail Reps/Minutes 10 Comments partial range knee extension Standing Exercise Name TKE Resistance L3 TB Reps/Minutes 15 x 2 step-touch Standing Exercise Name step down - toe tap Side bilateral Equipment Used 6 stair Reps/Minutes 10x Gait Training Gait Activity wt shifts Description fwd in mirror no AD Treatment Focus focus on reducing lat leans Comments instructed in forward weight shift and acceptance stairs Description 6 Distance/Duration 10 ea Treatment Focus alternating pattern Comments with rail for descent gait without device Device Used none Level of Assistance SBA, verbal cues Surface carpet, tile Treatment Focus increase RLE stance time Manual Therapy Treatment Soft Tissue Mobilization scar Mobilization Type Myofascial Release,Rolling Intensity/Depth Moderate Joint Mobilizations patella Direction med/sup/inf Grade III Body Position Supine PT-OP-R Modalities Start: 04/19/20 08:13 Freq: Status: Active Protocol: Document 05/12/20 13:03 [facility] (Rec: 05/12/20 14:10 [facility] [id number]) Hot Pack/Cold Pack Treatment Cold Pack Location knee Patient Position Hooklying Treatment Duration (minutes) 10 PT-OP-T Assessment and Plan Start: 04/19/20 08:13 Freq: Status: Active Protocol: Document 05/18/20 12:00 AW (Rec: 05/18/20 12:15 AW [id number]) Physical Therapy Assessment Goals Four Impairment lower extremity functional scale 39% Cement Truck Driver Goal (LTG) Decrease LEFS score to no greater than 15% LTG Duration 07/19/20 Three Impairment right knee strength 3-/5 Short Term Goal (STG) Patient to be instructed in HEP for right knee strengthening and be independent and compliant STG Duration 05/26/20 Skilled Nursing Goal (LTG) Patient right knee strength to improve to at least 4+/5 LTG Duration 07/19/20 Two Impairment antalgic gait requiring FWW Short Term Goal (STG) Patient able to ambulate 200' with least restrictive device without limp STG Duration 05/26/20 Skilled Nursing Goal (LTG) Patient able to ambulate on level surfaces and stairs with no assistive device without limp and with alternating pattern on stairs. LTG Duration 07/19/20 One Impairment right knee AROM 24-88 Short Term Goal (STG) Improve AROM right knee to 10- 110 STG Duration 05/26/20 Cement Truck Driver Goal (LTG) Improve knee AROM to 0-120 actively LTG Duration 07/19/20 Assessment Summary Assessment Treatment focused on terminal knee extension, stair navigation, and gait training. Pt continues to limp as he initiates gait but improves RLE stance time with verbal cues. Educated pt about ongoing deficits including stability, strength, and gait; encouraged pt to continue PT after he returns to [place]. Physical Therapy Plan Frequency and Duration Frequency of Treatment 2x/Week Duration of Treatment 12 weeks Plan of Care Start Date 04/19/20 Plan of Care End Date 07/19/20 Therapeutic Interventions Therapeutic Interventions Balance Training,Gait Training ,Home Exercise Program,Joint Mobilizations,Manual Therapy, Neuromuscular Re-education, Patient/Caregiver Education, Self-Care/Home Management,Soft Tissue Mobilization,Taping, Therapeutic Activities, Therapeutic Exercises Next Visit Focus/Plan Next Note Type Treatment Note Next Visit Plan review HEP for independence; encourage pt to continue PT at home.
--- NOTE | 2020-05-19 17:13 | PT.OTN ---
Current Diagnoses Bilateral primary osteoarthritis of knee (05/19/20) Difficulty in walking, not elsewhere classified (05/19/20) Weakness (05/19/20) Presence of left artificial knee joint (05/19/20) Physical Therapy Treatment Note PT-OP-A Visit Information Start: 04/19/20 08:13 Freq: Status: Active Protocol: Document 05/19/20 10:31 SAK (Rec: 05/19/20 11:17 SAK [id number]) Out-Patient Physical Therapy Visit Information Visit Information Visit Type Treatment Note Visit Start Time 10:25 Visit Stop Time 11:25 Total Visit Minutes 60 Visit Number 9 Number of GROCERY SPECIALIST Visits 0 PT-OP-B Current Condition Start: 04/19/20 08:13 Freq: Status: Active Protocol: Document 04/19/20 08:14 SAK (Rec: 04/19/20 09:01 SAK [id number]) Current Condition History of Current Condition Onset Date 09/12/20 Current Complaints right knee pain History of Current Condition s/p right TKA, has been, doing HEP, has ice massage, has not been elevating. Reports minimal pain with this TKA as compared to high pain levels after last TKA. Has recovered well from left TKA. Future Testing and Treatments Planned Sees Dr. Arvizu 04/23/20 Treatment Goals Patient/Caregiver Goals Normal range of motion, strength, and walking with right LE, no assistive. Prior Functional Status Baseline Function- ADL's Independent Baseline Function- Mobility Independent Baseline Function- Gait antalgic due to pain Current Functional Impairments (Reported) Functional Limitations- ADL's painful Functional Limitations- Mobility/Gait painful, uses FWW Functional Limitations- Work/School painful Functional Limitations- Recreation/ painful Hobbies PT-OP-C Subjective Start: 04/19/20 08:13 Freq: Status: Active Protocol: Document 05/19/20 10:31 SAK (Rec: 05/19/20 11:17 SAK [id number]) OP-PT Subjective Patient Comments Patient Comments Still most difficult to ascend and descend stairs. Returning home to [place] tomorrow after he sees his surgeon. PT-OP-G Mobility & Gait Start: 04/19/20 08:13 Freq: Status: Active Protocol: Document 04/19/20 08:14 SAK (Rec: 04/20/20 10:11 SAK [id number]) OP Gait Assessment Gait Gait Assistance Required: Standby Assistance Distance (Feet) 50 Able to Maintain Weight Bearing Status Yes During Gait Assistive Devices Assistive Device Front Wheeled Walker Orthotic/Prosthetic Devices or Brace: No Gait Deviations General Gait Pattern Antalgic,Flexed Trunk Factors Limiting Gait Function Factors Limiting Gait Function Decreased Strength,Pain Stair Climbing Evaluation Evaluation Level of Assist On Stairs Standby Assistance Technique/Endurance Stair Climbing Technique Step to Step PT-OP-H Neuro Start: 04/19/20 08:13 Freq: Status: Active Protocol: Document 04/19/20 08:14 SAK (Rec: 04/20/20 10:11 [facility] [id number]) Sensation Evaluation Gross Sensation Gross Sensation Right LE Impaired Sensation Description Paresthesia Comments Summary Comments right knee PT-OP-J Posture/Palpation/Skin Start: 04/19/20 08:13 Freq: Status: Active Protocol: Document 04/19/20 08:14 SAK (Rec: 04/20/20 10:11 SAK [id number]) Palpation Assessment Location One Palpation Location right knee Palpation Findings Edema,Soft Tissue Tightness, Muscle Guarding,Tenderness Skin Assessment Incisional Assessment Incision Appearance/Comments Incision covered by post-op dressing. No signs or symptoms of infection PT-OP-K Range of Motion Start: 04/19/20 08:13 Freq: Status: Active Protocol: Document 04/19/20 08:14 SAK (Rec: 04/20/20 10:11 [facility] [id number]) Knee Goniometric Range of Motion Knee Right Knee ROM WFL No Patient Position Sitting Flexion Active (degrees) 88 Extension Active (degrees) 24 Left Knee ROM WFL Yes Patient Position Sitting Flexion Active (degrees) 124 Extension Active (degrees) 0 Knee ROM Limitations Knee ROM Limitations Soft Tissue Tightness,Muscle Weakness,Pain,Swelling Comments poor quad activation PT-OP-M Strength Start: 04/19/20 08:13 Freq: Status: Active Protocol: Document 04/19/20 08:14 SAK (Rec: 04/20/20 10:11 [facility] [id number]) Knee Strength Knee Manual Muscle Testing Right Flexion (S2) 3- Fair- Extension (L3) 3- Fair- Left Flexion (S2) 5 Normal Extension (L3) 5 Normal PT-OP-Q Treatments Start: 04/19/20 08:13 Freq: Status: Active Protocol: Document 05/19/20 10:31 SAK (Rec: 05/19/20 11:17 SAK [id number]) Cardio Equipment Bicycle (Upright) Duration (Minutes) 10 Resistance 3 Seat Position 4 Other cues for circular motion, use of hamstrings Gym Equipment Shuttle Recovery Unilateral Squats Details B Resistance 62 Shuttle Recovery Platform Stable Reps/Time 10x2 Shuttle Balance chains red Details balance and weight shift fwd/ bck, side to side Reps/Duration 5 min Therapeutic Exercises Supine Exercises SAQ Reps/Minutes 10x2 gravity assisted knee flex Reps/Minutes 1x Comments while on shuttle leg press Standing Exercises SLS Side bilateral Reps/Minutes 5x10 ea knee extension Standing Exercise Name TKE Resistance L3 TB Reps/Minutes 15 x 2 HC stretch Equipment Used MARCI Reps/Minutes 2x stair lunge Reps/Minutes 10x5 step-touch Standing Exercise Name step down - toe tap, step up Side bilateral Equipment Used 4 stair Reps/Minutes 10x ea Comments cues for muscle activation, slow and controlled Gait Training Gait Activity wt shifts Description fwd in mirror no AD Treatment Focus focus on reducing lat leans Comments instructed in forward weight shift and acceptance stairs Description 6 Distance/Duration 10 ea Treatment Focus alternating pattern Comments with rail for descent gait without device Device Used none Level of Assistance SBA, verbal cues Surface carpet, tile Treatment Focus increase RLE stance time Manual Therapy Treatment Soft Tissue Mobilization scar Body Location surgical scar right knee Mobilization Type Myofascial Release,Rolling Intensity/Depth Moderate Joint Mobilizations patella Direction med/sup/inf Grade III Body Position Supine Self-Care/Home Management Treatment Education Patient Education Body Mechanics,Home Exercise Program,Pain Management, Posture,Safety PT-OP-R Modalities Start: 04/19/20 08:13 Freq: Status: Active Protocol: Document 05/12/20 13:03 [facility] (Rec: 05/12/20 14:10 [facility] [id number]) Hot Pack/Cold Pack Treatment Cold Pack Location knee Patient Position Hooklying Treatment Duration (minutes) 10 PT-OP-T Assessment and Plan Start: 04/19/20 08:13 Freq: Status: Active Protocol: Document 05/19/20 10:31 [facility] (Rec: 05/19/20 11:17 SAK [id number]) Physical Therapy Assessment Goals Four Impairment lower extremity functional scale 39% Nursing Home Goal (LTG) Decrease LEFS score to no greater than 15% LTG Duration 07/19/20 Three Impairment right knee strength 3-/5 Short Term Goal (STG) Patient to be instructed in HEP for right knee strengthening and be independent and compliant STG Duration 05/26/20 Nursing Home Goal (LTG) Patient right knee strength to improve to at least 4+/5 LTG Duration 07/19/20 Two Impairment antalgic gait requiring FWW Short Term Goal (STG) Patient able to ambulate 200' with least restrictive device without limp STG Duration 05/26/20 [employer] P[employer] Rep[employer]r Goal (LTG) Patient able to ambulate on level surfaces and stairs with no assistive device without limp and with alternating pattern on stairs. LTG Duration 07/19/20 One Impairment right knee AROM 24-88 Short Term Goal (STG) Improve AROM right knee to 10- 110 STG Duration 05/26/20 [employer] Rep[employer]r Goal (LTG) Improve knee AROM to 0-120 actively LTG Duration 07/19/20 Assessment Summary Assessment Patient instructed to schedule further PT in [place]; discuss tomorrow with surgeon to get order for PT. Good progress but still has deficits in gait , strength, and soft tissue mobility. would benefit from further PT. Physical Therapy Plan Discharge Physical Therapy Discharge Comments patient moving back home to [place].
--- NOTE | 2020-05-19 17:17 | PT.OPDS ---
Current Diagnoses Bilateral primary osteoarthritis of knee (05/19/20) Difficulty in walking, not elsewhere classified (05/19/20) Weakness (05/19/20) Presence of left artificial knee joint (05/19/20) Visit Care Team Role Provider Type Doctor MD Candi Primary Care Provider Non-Staff Specialty: Medical Address: Phone: Fax: Email: Stephen Arvizu MD Attending Provider Physician Referring Provider Specialty: Orthopedic Surgery Address: [address] [place] [address], [place], [address] Email: Visit Number Visit Number 9 Discharge Summary PT-OP-B Current Condition Start: 04/19/20 08:13 Freq: Status: Active Protocol: Document 04/19/20 08:14 SAK (Rec: 04/19/20 09:01 SAK [id number]) Current Condition History of Current Condition Onset Date 09/12/20 Current Complaints right knee pain History of Current Condition s/p right TKA, has been, doing HEP, has ice massage, has not been elevating. Reports minimal pain with this TKA as compared to high pain levels after last TKA. Has recovered well from left TKA. Future Testing and Treatments Planned Sees Dr. Arvizu 04/23/20 Treatment Goals Patient/Caregiver Goals Normal range of motion, strength, and walking with right LE, no assistive. Prior Functional Status Baseline Function- ADL's Independent Baseline Function- Mobility Independent Baseline Function- Gait antalgic due to pain Current Functional Impairments (Reported) Functional Limitations- ADL's painful Functional Limitations- Mobility/Gait painful, uses FWW Functional Limitations- Work/School painful Functional Limitations- Recreation/ painful Hobbies PT-OP-C Subjective Start: 04/19/20 08:13 Freq: Status: Active Protocol: Document 05/19/20 10:31 SAK (Rec: 05/19/20 11:17 SAK [id number]) OP-PT Subjective Patient Comments Patient Comments Still most difficult to ascend and descend stairs. Returning home to [place] tomorrow after he sees his surgeon. PT-OP-G Mobility & Gait Start: 04/19/20 08:13 Freq: Status: Active Protocol: Document 04/19/20 08:14 SAK (Rec: 04/20/20 10:11 SAK [id number]) OP Gait Assessment Gait Gait Assistance Required: Standby Assistance Distance (Feet) 50 Able to Maintain Weight Bearing Status Yes During Gait Assistive Devices Assistive Device Front Wheeled Walker Orthotic/Prosthetic Devices or Brace: No Gait Deviations General Gait Pattern Antalgic,Flexed Trunk Factors Limiting Gait Function Factors Limiting Gait Function Decreased Strength,Pain Stair Climbing Evaluation Evaluation Level of Assist On Stairs Standby Assistance Technique/Endurance Stair Climbing Technique Step to Step PT-OP-H Neuro Start: 04/19/20 08:13 Freq: Status: Active Protocol: Document 04/19/20 08:14 [facility] (Rec: 04/20/20 10:11 [facility] [id number]) Sensation Evaluation Gross Sensation Gross Sensation Right LE Impaired Sensation Description Paresthesia Comments Summary Comments right knee PT-OP-J Posture/Palpation/Skin Start: 04/19/20 08:13 Freq: Status: Active Protocol: Document 04/19/20 08:14 [facility] (Rec: 04/20/20 10:11 [facility] [id number]) Palpation Assessment Location One Palpation Location right knee Palpation Findings Edema,Soft Tissue Tightness, Muscle Guarding,Tenderness Skin Assessment Incisional Assessment Incision Appearance/Comments Incision covered by post-op dressing. No signs or symptoms of infection PT-OP-K Range of Motion Start: 04/19/20 08:13 Freq: Status: Active Protocol: Document 04/19/20 08:14 [facility] (Rec: 04/20/20 10:11 [facility] [id number]) Knee Goniometric Range of Motion Knee Right Knee ROM WFL No Patient Position Sitting Flexion Active (degrees) 88 Extension Active (degrees) 24 Left Knee ROM WFL Yes Patient Position Sitting Flexion Active (degrees) 124 Extension Active (degrees) 0 Knee ROM Limitations Knee ROM Limitations Soft Tissue Tightness,Muscle Weakness,Pain,Swelling Comments poor quad activation PT-OP-M Strength Start: 04/19/20 08:13 Freq: Status: Active Protocol: Document 04/19/20 08:14 [facility] (Rec: 04/20/20 10:11 [facility] [id number]) Knee Strength Knee Manual Muscle Testing Right Flexion (S2) 3- Fair- Extension (L3) 3- Fair- Left Flexion (S2) 5 Normal Extension (L3) 5 Normal PT-OP-T Assessment and Plan Start: 04/19/20 08:13 Freq: Status: Active Protocol: Document 05/19/20 10:31 [facility] (Rec: 05/19/20 11:17 [facility] [id number]) Physical Therapy Assessment Goals Four Impairment lower extremity functional scale 39% Half-Way Goal (LTG) Decrease LEFS score to no greater than 15% 05/19/20: good goal progress though not fully achieved due to early discharge. LTG Duration 07/19/20 Three Impairment right knee strength 3-/5 Short Term Goal (STG) Patient to be instructed in HEP for right knee strengthening and be independent and compliant STG Duration 05/26/20 Half-Way Goal (LTG) Patient right knee strength to improve to at least 4+/5 05/19/20: good goal progress, though functionally still having difficultywith stair ambulation LTG Duration 07/19/20 Two Impairment antalgic gait requiring FWW Short Term Goal (STG) Patient able to ambulate 200' with least restrictive device without limp STG Duration 05/26/20 Half-Way Goal (LTG) Patient able to ambulate on level surfaces and stairs with no assistive device without limp and with alternating pattern on stairs. 05/19/20: goal progress, though needs cues to ambulate level surfaces without limp, and functional strength deficits right LE don't yet allow him to ambulate on stairs with alternating pattern without difficulty LTG Duration 07/19/20 One Impairment right knee AROM 24-88 Short Term Goal (STG) Improve AROM right knee to 10- 110 STG Duration 05/26/20 Gas Reverser Goal (LTG) Improve knee AROM to 0-120 actively 05/19/20: 4-125 AROM, mostly achieved LTG Duration 07/19/20 Assessment Summary Assessment Patient instructed to schedule further PT in [place]; discuss tomorrow with surgeon to get order for PT. Good progress but still has deficits in gait , strength, and soft tissue mobility. would benefit from further PT. Physical Therapy Plan Discharge Physical Therapy Discharge Comments patient moving back home to [place].
== END 2020-05-20 10:46 ==
LOC: PHYS 10:30
PROVIDERS: Referring Provider Orthopaedic Surgery; Visit Provider Orthopaedic Surgery
DX: M17.0 Bilateral primary osteoarthritis of knee (principal); Z96.652 Presence of left artificial knee joint; R53.1 Weakness; R26.2 Difficulty in walking, not elsewhere classified
CPT/HCPCS: 97010; 97110; 97116; 97140; 97162; 97535